=== PATIENT | female | born 2000 | race Two or more races ===

== ENCOUNTER 2024-07-19 03:32 | Emergency (ER) | payer MEDICARE, MEDICAID, SELFPAY ==
[2024-07-19 03:34] VITALS: PULSE 96; RESP 20; O2SAT 97; BMI 81.2
[2024-07-19 03:44] VITALS: BP 153/86; PULSE 110; RESP 19; TEMP 36.7; O2SAT 95
--- NOTE | 2024-07-19 03:52 | PD.EDRME ---
Rapid Medical Screening Exam RME Arrival date/time: 07/19/24 03:32 24-year-old female with past medical history of schizophrenia and father at bedside presents emergency department complaining of suicidal ideation without plan and auditory hallucinations telling her to hurt herself. Chief Complaint: Anxiety Vital signs: Vital Signs Temperature 98.0 F 07/19/24 03:44 Pulse Rate 110 H 07/19/24 03:44 Respiratory Rate 19 07/19/24 03:44 Blood Pressure 153/86 H 07/19/24 03:44 Pulse Oximetry (%) 95 07/19/24 03:44 Oxygen Delivery Method Room Air 07/19/24 03:44 Vital signs reviewed by provider: Yes
[2024-07-19 04:41] LABS: Collection Type, Urine Clean Catch
[2024-07-19 04:47] LABS: Bacteria,Urine Rare; Bilirubin,Urine Negative (Negative); Blood,Urine Negative (Negative); Clarity,Urine Clear (Clear/Hazy); Color,Urine Colorless (Lt Yel-Yel); Culture Indicated,Urine Not Indicated; Glucose, Urine Negative (Negative); Ketones,Urine Negative (Negative); Leukocyte Esterase,Urine Negative (Negative); Nitrite,Urine Negative (Negative); Protein,Urine Negative (Neg - Trace); RBC,Urine 1 /hpf (0-3); Specific Gravity,Urine 1.007 (1.001-1.035); Squamous Epithelial Cell,Urine 1 /hpf (0-5); Urobilinogen,Urine Negative mg/dL (0.0-1.0); WBC,Urine 2 /hpf (0-5)
[2024-07-19 05:09] VITALS: BP 133/104; PULSE 105; RESP 20; TEMP 37.2; O2SAT 95
[2024-07-19 05:11] LABS: Amphetamine/Methamp Scrn,U Negative (Negative); Barbiturate Screen,Urine Negative (Negative); Benzoylecgonine Screen, Ur Negative (Negative); Fentanyl Screen,Urine Negative (Negative); Opiate Screen,Urine Negative (Negative); THC Screen,Urine Negative (Negative)
[2024-07-19 05:12] LABS: Benzodiazepines Screen,Urine Positive (Negative)
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
--- NOTE | 2024-07-19 06:23 | PC.NURSE ---
Pt walked to the bathroom and back. Pt not c/o of any discomfort at this time. Pt made given update on plan of care. Call light within reach.
[2024-07-19 07:10] VITALS: BP 152/107; PULSE 84; RESP 22; O2SAT 100
--- NOTE | 2024-07-19 07:10 | PC.NURSE ---
PT STANDING IN ROOM. NOW STATING WANTED TO KILL SELF WITH KNIFE BECAUSE MY DAD DOESN'T APPRECIATE WHAT I DO. WILL INFORM CHARGE NURSE THAT PT NOW STATING SUICIDAL IDEATION. ALL FROM SOCIAL SERVICED INFORMED THAT PT HERE
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
[2024-07-19 08:12] VITALS: BP 171/91; PULSE 96; RESP 20; TEMP 37.2; O2SAT 95
--- NOTE | 2024-07-19 09:00 | PC.NURSE ---
pt frequently walking from room to desk to ask for bible or food. Ball Truing Machine Operator called and will bring bible to pt
--- NOTE | 2024-07-19 09:17 | CHAP ---
Patient had requested a small Bible so the nurse called me. I took several New Testaments to leave at the desk. After I gave the patient a white one she requested a blue one as well. I gave her a blue one. I asked the patient What's your name? I could not quite make out the answer and tried again, but it still sounded indistinct and garbled, so I asked her to spell it for me and she did slowly. I asked her if she would like me to pray with her and she said yes. I had a prayer with her.
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
--- NOTE | 2024-07-19 09:40 | PC.NURSE ---
pt leeping and will not waken for vital signs
--- NOTE | 2024-07-19 10:44 | PC.CC ---
Pt Mikaela Houston is a 24 yr old female to ED for reported anxiety. Pt reporting command type auditory hallucinations telling her to harm herself. Per pt she will not act on these commands. Pts [place] Screening is 18/25 with negative tox screening. Pt is frequently seen in the ED for similar reports of anxiety and auditory hallucinations. It is noted that pt reported to RN that she is thinking of harming herself with a knife. ASW met with pt at bedside. Pt noted to be unhygienic, pt being unable to complete her ADLs without assist due to body mass. ASW explained reason for encounter and role in pt care. Pt is noted to be responding in internal stimuli. Pt fails to keep direct eye contact. Pt speaks in clear even tone. Pt presents with blunted affect. Pt is alert and oriented to person, place and situation. Pt reports coming to the ED due to her anxiety. Pt reports she is experiencing command type auditory hallucinations, that are telling her to harm herself. Pt reports that she will not act on commands. Pt states that at this time she is not wanting to harm herself or others. ASW assessed pts statement of wanting to kill herself with a knife. Pt reports she has knifes in her kitchen at home, but states she does not use them. ASW assessed if pt wants to hurt herself at this time. Pt denies any SI to ASW at this time. Pt reports she is prescribed mental health medication and is seeing a therapist at [facility] on [address], next appointment on 07/26/24 @ 1400. Pt reports recently having [facility], pending follow up appointment. [id number]-Case staffed with WIRE RIGGER Korin Chauhan. Pt to be cleared with safety plan. ASW will follow up with [facility] and [facility] to confirm appointment dates.
--- NOTE | 2024-07-19 11:28 | PC.NURSE ---
dr. fatima in to talk with pt
== END 2024-07-19 11:43 | disposition home or self-care (01) ==
PROVIDERS: Emergency Provider Emergency Medicine; PCP Family Medicine
DX: F20.9 Schizophrenia, unspecified (principal); E66.01 Morbid (severe) obesity due to excess calories; Z68.45 Body mass index [BMI] 70 or greater, adult; Z53.29 Procedure and treatment not carried out because of patient's decision for other reasons
CPT/HCPCS: 80307; 81001; 81025; 96127; 99281; 99284

== ENCOUNTER 2024-07-20 08:49 | Emergency (ER) | payer MEDICARE, MEDICAID, SELFPAY ==
[2024-07-20 09:01] VITALS: BP 145/66; PULSE 88; RESP 19; TEMP 36.9; O2SAT 99
--- NOTE | 2024-07-20 12:07 | PC.NURSE ---
took off pants in lobby br walked out with no pants or underwear on. given blanket to cover herself while staff looks for something to cover her
--- NOTE | 2024-07-20 15:12 | PC.CC ---
ASWMckenzie was consulted for ride home for the patient. This ASW is arranging an UBER for patient.
[2024-07-20 15:18] VITALS: BP 147/80; PULSE 72; RESP 20; TEMP 37; O2SAT 95
--- NOTE | 2024-07-20 15:28 | PD.EDADULT ---
ED General RME/HPI General Chief complaint: Abdominal Pain Stated complaint: STOMACH HURTING Time Seen by Provider: 07/20/24 08:51 Arrival date/time: 07/20/24 08:49 24-year-old female presents emergency department today stating my stomach is hurting patient reports no fever nausea vomiting patient also suffers from psychiatric disorder Limitations: no limitations Related Data Home Medications ?Medication ?Instructions ?Recorded ?Confirmed haloperidol 2 mg tablet 2 mg PO BID 11/05/23 04/23/24 brexpiprazole 2 mg tablet (Rexulti) 3 mg PO HS 04/08/24 04/23/24 carvedilol 3.125 mg tablet (Coreg) 3.125 mg PO BID 04/08/24 04/23/24 vortioxetine 10 mg tablet 10 mg PO HS 04/08/24 04/23/24 (Trintellix) metformin 1,000 mg tablet 500 mg PO BID 04/23/24 04/23/24 Previous Rx's ?Medication ?Instructions ?Recorded lisinopril 20 mg tablet 40 mg (2 x 20 mg) PO QDAY 30 days 11/07/23 #60 tabs atorvastatin 20 mg tablet 40 mg (2 x 20 mg) PO HS #30 tabs 04/18/24 benzocaine 10 % mucosal gel See Rx Instructions .Route 04/18/24 (Zilactin-B) .COMPLEX PRN MOUTH/DENTAL PAIN #7 grams polyethylene glycol 3350 17 gram 17 g PO QDAY PRN constipation #30 04/18/24 oral powder packet (HealthyLax) prince flash glucose scanning reader #1 ea 04/26/24 (FreeStyle Rosales 2 [place]) flash glucose sensor (FreeStyle #1 ea 04/26/24 Rosales 2 Sensor kit) benztropine 0.5 mg tablet 0.5 mg PO QDAY 30 days #30 tabs 06/27/24 metformin 1,000 mg tablet 1,000 mg PO BID #60 tabs 06/27/24 cefuroxime axetil 500 mg tablet 500 mg PO BID #14 tabs 07/09/24 ondansetron 4 mg disintegrating 4 mg PO Q8H PRN nausea and 07/09/24 tablet vomiting #10 tabs polyethylene glycol 3350 17 4 g PO QDAY #119 grams 07/09/24 gram/dose oral powder (Miralax) Allergies Allergy/AdvReac Type Severity Reaction Status Date / Time No Known Allergies Allergy Verified 07/20/24 08:52 Review of Systems Review of Systems Systems Reviewed: All systems reviewed, normal except as documented Constitutional Constitutional: Reports system reviewed and no additional complaints, except as documented, Denies fever(s) and Denies headache(s) Eyes Eyes: Reports system reviewed and no additional complaints, except as documented and Denies blurry vision ENT Ears, Nose, Mouth, and Throat: Reports system reviewed and no additional complaints, except as documented, Denies headache(s), Denies nasal congestion and Denies nasal discharge Cardiovascular Cardiovascular: Reports system reviewed and no additional complaints, except as documented, Denies chest pain and Denies dyspnea Respiratory Respiratory: Reports system reviewed and no additional complaints, except as documented, Denies chest congestion, Denies cough and Denies dyspnea Gastrointestinal Gastrointestinal: Reports system reviewed and no additional complaints, except as documented and Denies abdominal pain Integumentary/Breasts Skin/Breast: Reports system reviewed and no additional complaints, except as documented and Denies rash Neurologic Neurologic: Reports system reviewed and no additional complaints, except as documented, Reports as per HPI, Denies behavioral changes and Denies headache(s) Psychiatric Psychiatric: Reports system reviewed and no additional complaints, except as documented, Denies behavioral changes, Denies hallucinations, Denies homicidal ideation, Denies hopelessness, Denies mood swings, Denies panic attacks, Denies suicidal ideation and Denies visual hallucinations Past Medical History Past Medical History NEUROLOGIC: Negative Neurological Disorders CARDIAC: Positive Hypercholesterolemia and Hypertension; Negative Cardiac Disorders or Congestive Heart Failure RESPIRATORY: Positive Chronic Obstructive Pulmonary Disease (COPD), Asthma, Sleep Apnea and Intubation GASTROINTESTINAL: Positive Obesity; Negative Gastrointestinal Disorders GENITOURINARY: Negative Genitourinary Disorders or Renal Disease MUSCULOSKELETAL: Negative Musculoskeletal Disorders ENDOCRINE: Positive Endocrine Disorders and Diabetes Mellitus Type 2; Negative Diabetes Mellitus Type 1 HEMATOLOGIC: Positive Anemia; Negative Blood Disorders or Sickle Cell Disease PSYCHO/SOCIAL: Positive Schizophrenia, Bipolar Disorder, Depression and Anxiety OTHER HISTORY: Negative Autoimmune Disease, Blood Transfusion Reaction, Anesthesia Reactions, MRSA or Cancer Family History FAMILY HISTORY: Positive Family Psychiatric Problems; Negative Family Cardiac Disorders Surgical History SURGICAL: Negative Endocrine Surgery, Ear Surgery, Abdominal Surgery, Joint Replacement, Neurologic Surgery or Mastectomy Social History SMOKING STATUS: Never smoker SUBSTANCE USE: does not use ED Exam General Limitations: Present no limitations General appearance: Present alert and in no apparent distress Head Head exam: Present atraumatic, normocephalic and normal inspection Eye Eye exam: Present normal appearance, PERRL and EOMI; Absent conjunctival injection ENT ENT exam: Present normal exam, normal oropharynx and mucous membranes moist Neck Neck exam: Present normal inspection, full ROM and trachea midline Chest Chest inspection: Present normal inspection and symmetric chest wall rise Respiratory Respiratory exam: Present normal lung sounds bilaterally; Absent respiratory distress Cardiovascular Cardiovascular exam: Present regular rate, normal rhythm and normal heart sounds Abdominal Exam Abdominal exam: Present soft and normal bowel sounds; Absent distention, tenderness, guarding, rebound or rigidity Extremities Exam Extremities exam: Present normal inspection and full ROM; Absent tenderness Back Exam Back exam: Present normal inspection and full ROM Neurological Exam Neurological exam: Present alert, oriented X3, CN II-XII intact, normal gait and reflexes normal; Absent motor sensory deficit Psychiatric Psychiatric exam: Present normal affect and normal mood Skin Skin exam: Present warm, dry, intact and normal color; Absent rash Course Quality Measures none Vital Signs Vital signs: Vital Signs Temperature 98.5 F 07/20/24 09:01 Pulse Rate 88 07/20/24 09:01 Respiratory Rate 19 07/20/24 09:01 Blood Pressure 145/66 H 07/20/24 09:01 Pulse Oximetry (%) 99 07/20/24 09:01 Oxygen Delivery Method Room Air 07/20/24 09:01 O2 saturation 99% room air within normal limits MDM Patient data External records reviewed:: [facility] previous records Clinical information provided by:: patient Social determinants that could affect healthcare access:: mental health Patient has the following chronic illnesses:: Mental health How is presenting disease/condition affected by chronic disease/condition?: caused by Evaluation data The following diagnostics were reviewed and interpreted by me:: other (specify) (N/A) Lab and/or radiology exams considered but not ordered:: Consider not ordered Interpretation Summary: N/A Medications Medications considered but not ordered:: No meds Medication administrations:: No meds Consultations Consultation(s) initiated? (list below): No Diagnosis Differential Diagnosis ED Complaint MDM: Abdominal pain, appendicitis, gastroenteritis, psychiatric disorder Most likely diagnosis given after review of the tests above:: Psychiatric disorder Admission Indicated Admission indicated?: not indicated Explain why admission is indicated or not indicated:: no criteria Admission Request Was there a request for admission?: No Disposition Plan Disposition Plan: Discharge Discharge Attestation Discharge Attestation: The patient and all family members were given an opportunity to ask questions and understood the discharge instructions. Discharge instructions specifically effects, indications for sooner follow up or return to the emergency department, and the expected course of current diagnosis. Patient condition: Stable Medical Decision Making MDM Narrative MDM Narrative: 24-year-old female presents emergency department today stating my stomach is hurting patient reports no fever nausea vomiting patient also suffers from psychiatric disorder Patient well-known to me patient does not appear ill or toxic in fact I just saw the patient in the cafeteria here at the hospital eating patient was smiling and happy at that time literally this happened in the last 10 minutes Explained to the patient at this time I do not believe there is any acute emergency Explained to the patient if her symptoms persist or worsen she can return for further evaluation Differential Diagnosis Differential Diagnosis: Abdominal pain, appendicitis, gastroenteritis, psychiatric disorder Medical Records Medical records reviewed: Yes I reviewed the patient's medical records. Discharge Plan Plan Patient Disposition: HOME (Self Care) Disposition Comment: Stable Prescriptions/Referrals Prescriptions/Med Rec: No Action metformin 1,000 mg tablet 500 mg PO BID Patient Comments: TOME LUIS FERNANDO TABLETA DOS VECES AL D A CON ALIMENTO (DME) FreeStyle Rosales 2 [place] Misc See Rx Instructions .Route Qty: 1 0RF Rx Instructions: As directed (DME) FreeStyle [place] 2 Sensor Kit See Rx Instructions .Route Qty: 1 0RF Rx Instructions: As directed metformin 1,000 mg tablet 1,000 mg PO BID Qty: 60 0RF benztropine 0.5 mg tablet 0.5 mg PO QDAY 30 Days Qty: 30 0RF cefuroxime axetil 500 mg tablet 500 mg PO BID Qty: 14 0RF polyethylene glycol 3350 [Miralax] 17 gram/dose powder 4 g PO QDAY Qty: 119 0RF haloperidol 2 mg tablet 2 mg PO BID Patient Comments: TOME LUIS FERNANDO TABLETA POR V A ORAL DOS VECES AL D A lisinopril 20 mg Tablet 40 mg PO QDAY 30 Days Qty: 60 1RF carvedilol [Coreg] 3.125 mg Tablet 3.125 mg PO BID Rx Instructions: must administer with a meal/food Trintellix 10 mg Tablet 10 mg PO HS Rexulti 2 mg tablet 3 mg PO HS Zilactin-B 10 % Gel See Rx Instructions .ROUTE .COMPLEX PRN (Reason: MOUTH/DENTAL PAIN) Qty: 7 0RF Rx Instructions: apply twice a day as needed atorvastatin 20 mg Tablet 40 mg PO HS Qty: 30 0RF polyethylene glycol 3350 [HealthyLax] 17 gram Powder In Packet 17 g PO QDAY PRN (Reason: constipation) Qty: 30 0RF ondansetron 4 mg tablet,disintegrating 4 mg PO Q8H PRN (Reason: nausea and vomiting) Qty: 10 0RF Referrals: Dimitry Oglesby MD [Primary Care Provider] - In 1 week Problem List Clinical Impression: Psychiatric disorder Patient/Caregiver Discharge Instructions Education Materials: Journaling for Mental Health Additional Instructions: Please follow up with your primary care doctor in the next 24-48hrs for any worsening symptoms return here immediately Print Language: Libyan Stand Alone Forms: Zandra Award Info., Patient Portal Info Letter PA/BLACK TOP ROLLER Supervising Physician PA/BLACK TOP ROLLER Supervising Physician: Dr. Arciniega
--- NOTE | 2024-07-20 15:42 | PC.NURSE ---
PT PICKED UP BY [facility] [place] [place]
== END 2024-07-20 15:32 | disposition home or self-care (01) ==
PROVIDERS: Emergency Provider Emergency Medicine; PCP Family Medicine
DX: F99 Mental disorder, not otherwise specified (principal)
CPT/HCPCS: 99281

== ENCOUNTER 2024-07-21 07:55 | Emergency (ER) | payer MEDICARE, MEDICAID, SELFPAY ==
[2024-07-21 07:56] VITALS: PULSE 92; RESP 18; O2SAT 97
[2024-07-21 08:07] VITALS: BP 138/73; PULSE 86; RESP 20; TEMP 36.8; O2SAT 95; BMI 76.4
--- NOTE | 2024-07-21 08:26 | PD.EDRME ---
Rapid Medical Screening Exam RME Arrival date/time: 07/21/24 07:55 This is a 24-year-old female history of bipolar schizophrenia acute psychosis presents to the emergency department with anxiety, hearing voices. Positive SI. Chief Complaint: Anxiety Time Seen by Provider: 07/21/24 08:04 Vital signs: Vital Signs Temperature 98.2 F 07/21/24 08:07 Pulse Rate 86 07/21/24 08:07 Respiratory Rate 20 07/21/24 08:07 Blood Pressure 138/73 H 07/21/24 08:07 Pulse Oximetry (%) 95 07/21/24 08:07 Oxygen Delivery Method Room Air 07/21/24 08:07
--- NOTE | 2024-07-21 08:31 | PD.EDANX ---
ED Anxiety RME/HPI General Chief Complaint: Anxiety Stated Complaint: ANXIOUS Time Seen by Provider: 07/21/24 08:04 Arrival date/time: 07/21/24 07:55 RME / HPI RME / HPI narrative: 07/21/24 07:55 This is a 24-year-old female history of bipolar schizophrenia acute psychosis presents to the emergency department with anxiety, hearing voices. Positive SI. DR. ARCINIEGA MAIN ED EVALUATION 24 year old female with history of hypertension, diabetes, schizophrenia, bipolar disorder, and well known to this facility presents to the ED for complaint of feeling anxious and I'm hearing voices . Reports the voices tell her to kill herself and says but I'm not going to do it because I'm too intelligent . Additionally reports thoughts of overdosing with intentions to kill herself. Denies any attempts. No other associated symptoms or complaints reported. Denies fevers, chills, chest pain, cough, shortness of breath, abdominal pain, n/v/d, or urinary symptoms. Patient reports compliance with her medications and took Metformin, Atorvastatin, Lisinopril, and Carvedilol this morning. Related Data Home Medications ?Medication ?Instructions ?Recorded ?Confirmed haloperidol 2 mg tablet 2 mg PO BID 11/05/23 04/23/24 brexpiprazole 2 mg tablet (Rexulti) 3 mg PO HS 04/08/24 04/23/24 carvedilol 3.125 mg tablet (Coreg) 3.125 mg PO BID 04/08/24 04/23/24 vortioxetine 10 mg tablet 10 mg PO HS 04/08/24 04/23/24 (Trintellix) metformin 1,000 mg tablet 500 mg PO BID 04/23/24 04/23/24 Previous Rx's ?Medication ?Instructions ?Recorded lisinopril 20 mg tablet 40 mg (2 x 20 mg) PO QDAY 30 days 11/07/23 #60 tabs atorvastatin 20 mg tablet 40 mg (2 x 20 mg) PO HS #30 tabs 04/18/24 benzocaine 10 % mucosal gel See Rx Instructions .Route 04/18/24 (Zilactin-B) .COMPLEX PRN MOUTH/DENTAL PAIN #7 grams polyethylene glycol 3350 17 gram 17 g PO QDAY PRN constipation #30 04/18/24 oral powder packet (HealthyLax) ea flash glucose scanning reader #1 ea 04/26/24 (FreeStyle Rosales 2 [place]) flash glucose sensor (FreeStyle #1 ea 04/26/24 Rosales 2 Sensor kit) benztropine 0.5 mg tablet 0.5 mg PO QDAY 30 days #30 tabs 06/27/24 metformin 1,000 mg tablet 1,000 mg PO BID #60 tabs 06/27/24 cefuroxime axetil 500 mg tablet 500 mg PO BID #14 tabs 07/09/24 ondansetron 4 mg disintegrating 4 mg PO Q8H PRN nausea and 07/09/24 tablet vomiting #10 tabs polyethylene glycol 3350 17 4 g PO QDAY #119 grams 07/09/24 gram/dose oral powder (Miralax) Allergies Allergy/AdvReac Type Severity Reaction Status Date / Time No Known Allergies Allergy Verified 07/20/24 08:52 Review of Systems Review of Systems Narrative Review of Systems: GEN: No fever, no chills, no weight loss EYES: No discharge, no visual changes, no pain HEENT: No ear pain, no congestion, no sore throat PULM: No shortness of breath, no cough, no congestion CV: No chest pain, no dyspnea on exertion, no palpitations GI: No nausea, no vomiting, no diarrhea, no pain, no constipation : No frequency, no urgency and no dysuria MUSC/SKEL No joint pain, no back pain SKIN: No rash PSYCH: +auditory hallucinations, +SI HEME/LYMPH: No easy bleeding or bruising tendencies NEURO: No weakness, no headache Past Medical History Past Medical History CARDIAC: Positive Hypercholesterolemia and Hypertension RESPIRATORY: Positive Chronic Obstructive Pulmonary Disease (COPD), Asthma, Sleep Apnea and Intubation GASTROINTESTINAL: Positive Obesity ENDOCRINE: Positive Endocrine Disorders and Diabetes Mellitus Type 2 HEMATOLOGIC: Positive Anemia PSYCHO/SOCIAL: Positive Schizophrenia, Bipolar Disorder, Depression and Anxiety Family History FAMILY HISTORY: Positive Family Psychiatric Problems; Negative Family Cardiac Disorders Surgical History SURGICAL: Negative Endocrine Surgery, Ear Surgery, Abdominal Surgery, Joint Replacement, Neurologic Surgery or Mastectomy Social History SMOKING STATUS: Never smoker SUBSTANCE USE: does not use ED Exam Narrative Physical exam: GENERAL APPEARANCE: Well hydrated, well nourished, in no acute distress. Morbidly obese. Pleasant. VITALS: All vitals were reviewed and the pulse ox is 95% on room air which is normal according to my interpretation. HEENT: Normocephalic, atramatic, EOMI, EACs are patent. There is no bulge or retraction. Throat without erythema or exudate. Moist oromucosa. No jaundice NECK: Supple, no JVD or bruits. CARDIOVASCULAR: Heart regular without S3-S4 or murmur. No rubs or gallops. LUNGS/CHEST: Clear to auscultation bilaterally. No rales, rhonchi, or wheezing. Normal inspection. ABDOMEN: Soft, morbidly obese, nontender, with normal bowel sounds. No pulsatile masses. No rebound, rigidity, or guarding. No incarcerated hernia. EXTREMITIES: Normal inspection and palpation. No edema, clubbing, or cyanosis. Intact CSM SKIN: Warm and dry without rashes. Normal inspection. MUSCULOSKELETAL: Normal inspection. No gross deformity, full ROM all extremities NEURO: Alert and oriented x3. Cranial nerves II through XII grossly intact. There are no other motor or sensory deficits noted. PSYCHIATRIC: Normal mood and affect. Pleasant. No psychosis Course Quality Measures none Orders Category Date Time Status Psychosocial assessment NOW Care 07/21/24 08:26 Active Consult to Psychologist Routine Cons 07/21/24 08:26 Ordered Drug Screen,Urine Stat Lab 07/21/24 08:26 Ordered HCG Qualitative,Urine Stat Lab 07/21/24 08:26 Ordered MARIO [Alcohol, Blood Medical] Stat Lab 07/21/24 08:26 Ordered Vital Signs Vital signs: Vital Signs Temperature 98.2 F 07/21/24 08:07 Pulse Rate 86 07/21/24 08:07 Respiratory Rate 20 07/21/24 08:07 Blood Pressure 138/73 H 07/21/24 08:07 Pulse Oximetry (%) 95 07/21/24 08:07 Oxygen Delivery Method Room Air 07/21/24 08:07 Anxiety MDM Narrative MDM Narrative: IBreanne am scribing for and in the presence of Dr. Arciniega. Drug screen is negative. Alcohol level is negative. test is negative. 10 0 8 AM, the patient is medically cleared to be seen by mental health. 11:10 AM, the patient is stable. Mental health/rn social work is here, has seen and reevaluated the patient. She said the patient can be discharged home. The patient is currently not suicidal homicidal. She is not hallucinating or delusional acutely at this moment. Patient is pleasant and cooperative and reasonable Patient data External records reviewed:: [facility] previous records (I reviewed ED visit yesterday 07/20/2024) Clinical information provided by:: patient Social determinants that could affect healthcare access:: mental health Patient has the following chronic illnesses:: hypertension, diabetes, schizophrenia, bipolar disorder, and well known to this facility How is presenting disease/condition affected by chronic disease/condition?: exacerbated by Evaluation data The following diagnostics were reviewed and interpreted by me:: lab results Lab and/or radiology exams considered but not ordered:: None Interpretation Summary: As noted above Medications / Prescriptions Medications or Prescriptions considered but not ordered:: None Medication administrations:: None Consultations Consultation(s) initiated? (list below): No Diagnosis Most likely diagnosis given after review of the tests above:: Schizophrenia Admission Indicated Admission indicated?: not indicated Admission Request Was there a request for admission?: No Disposition Plan Disposition Plan: Discharge Discharge Attestation Discharge Attestation: The patient and all family members were given an opportunity to ask questions and understood the discharge instructions. Discharge instructions specifically effects, indications for sooner follow up or return to the emergency department, and the expected course of current diagnosis. Patient condition: Stable Discharge Plan Plan Patient Disposition: HOME (Self Care) Disposition Comment: Stable for DC home Prescriptions/Referrals Prescriptions/Med Rec: No Action metformin 1,000 mg tablet 500 mg PO BID Patient Comments: TOME LUIS FERNANDO TABLETA DOS VECES AL D A CON ALIMENTO (DME) FreeStyle Rosales 2 [place] [facility] [place] See Rx Instructions .Route Qty: 1 0RF Rx Instructions: As directed (DME) FreeStyle Rosales 2 Sensor Kit See Rx Instructions .Route Qty: 1 0RF Rx Instructions: As directed metformin 1,000 mg tablet 1,000 mg PO BID Qty: 60 0RF benztropine 0.5 mg tablet 0.5 mg PO QDAY 30 Days Qty: 30 0RF cefuroxime axetil 500 mg tablet 500 mg PO BID Qty: 14 0RF polyethylene glycol 3350 [Miralax] 17 gram/dose powder 4 g PO QDAY Qty: 119 0RF haloperidol 2 mg tablet 2 mg PO BID Patient Comments: TOME LUIS FERNANDO TABLETA POR V A ORAL DOS VECES AL D A lisinopril 20 mg Tablet 40 mg PO QDAY 30 Days Qty: 60 1RF carvedilol [Coreg] 3.125 mg Tablet 3.125 mg PO BID Rx Instructions: must administer with a meal/food Trintellix 10 mg Tablet 10 mg PO HS Rexulti 2 mg tablet 3 mg PO HS Zilactin-B 10 % Gel See Rx Instructions .ROUTE .COMPLEX PRN (Reason: MOUTH/DENTAL PAIN) Qty: 7 0RF Rx Instructions: apply twice a day as needed atorvastatin 20 mg Tablet 40 mg PO HS Qty: 30 0RF polyethylene glycol 3350 [HealthyLax] 17 gram Powder In Packet 17 g PO QDAY PRN (Reason: constipation) Qty: 30 0RF ondansetron 4 mg tablet,disintegrating 4 mg PO Q8H PRN (Reason: nausea and vomiting) Qty: 10 0RF Referrals: Marcio Oneill PA-C [Primary Care Provider] - In 1 week Problem List Clinical Impression: Schizophrenia Patient/Caregiver Discharge Instructions Education Materials: ED Schizophrenia, General Additional Instructions: Follow the instruction given you by the mental health conditioning room worker and rn social work. Follow-up with your medical doctor recommended. Return to nearest emergency department if any problem. Print Language: Angolan Stand Alone Forms: Zandra Award Info., Patient Portal Info Letter
[2024-07-21 09:15] LABS: Alcohol, Blood Medical < 3.0 mg/dL (0-10.0)
--- NOTE | 2024-07-21 09:20 | PC.NURSE ---
PATIENT HAD CAME IN VIA EMS FOR FEELING VIOLENT PER PT. THIS IS PATIENTS 11TH VISIT HERE THIS MONTH FOR DIFFERENT COMPLAINTS. PT HAS CHRONIC HALLUCINATING, ALSO STATES SHE IS DEPRESSED AND SI. I ASKED DOES SHE HAVE A PLAN TO HURT HERSELF SHE STATED NO. I AGAIN ASKED PT WHY SHE CALLED EMS SHE STATES IM DISAPPEARING AND IM . I ASKED IF SHE HAS HAD SEXUAL INTERCOURSE AND SHE SAID YES WHEN SHE WAS 15. SHE ALSO COMPLAIN OF THROAT PAIN. [place] SCALE COMPLETED. LOW RISK
[2024-07-21 10:04] LABS: Amphetamine/Methamp Scrn,U Negative (Negative); Barbiturate Screen,Urine Negative (Negative); Benzodiazepines Screen,Urine Negative (Negative); Benzoylecgonine Screen, Ur Negative (Negative); Fentanyl Screen,Urine Negative (Negative); Opiate Screen,Urine Negative (Negative); THC Screen,Urine Negative (Negative)
[2024-07-21 10:07] LABS: HCG Qualitative,Urine Negative
--- NOTE | 2024-07-21 10:59 | PC.CC ---
Patient is a 24 year-old female who presents to the hospital for anxiety. ASWMckenzie introduced self, role, and reason for visit to patient and discussed limits of confidentiality. Patient appears alert and oriented to self, location, and situation. Patient was pleasant and engaged in assessment. Patient reports she has been hearing voices in her head telling her that bad things will happen. However, patient shared this is her base line and occurs everyday. Patient denied suicidal and homicidal ideations. Patient denied auditory hallucinations. Patient stated, I have Bipolar and Schizophernia. Patient has been feeling sad because she misses her mother that . Patient is connected to [facility] and has an appointment on August 10, 2024. Patient stated she would like to go home but would like some coloring pages and colors as she has been bored at home. Upon clinical consultation with Korin DAMICO the patient does not meet criteria for 5150-hold. Patient to follow up with [facility]. ASW to remain available.
--- NOTE | 2024-07-21 15:04 | PC.CC ---
The father to the patient presented himself to the ED to pickling machine operator patient. ASW arranged UBER for the patient.
== END 2024-07-21 15:00 | disposition home or self-care (01) ==
PROVIDERS: Nurse Practitioner Primary Care; Emergency Provider Emergency Medicine; PCP Physician Assistant Medical
DX: F20.9 Schizophrenia, unspecified (principal)
CPT/HCPCS: 36415; 80307; 80320; 81025; 90839; 96127; 99284; G0480

== ENCOUNTER 2024-07-22 07:24 | Emergency (ER) | payer MEDICARE, MEDICAID, SELFPAY ==
[2024-07-22 07:38] VITALS: BP 141/72; PULSE 92; RESP 22; TEMP 36.6; O2SAT 92
[2024-07-22] MEDS: ACETAMINOPHEN 500 MG TABLET 1000 MG PO (08:18)
--- NOTE | 2024-07-22 08:21 | EDNOTE_ITS ---
ED Headache RME/HPI General Chief Complaint: Headache Stated Complaint: HEADACHE X YESTERDAY AFTER EATING A LOT Time Seen by Provider: 07/22/24 07:40 Source: patient Arrival date/time: 07/22/24 07:24 This a 24-year-old female significant past medical history of hyperlipidemia, psych disorders, hypertension presents to the emergency department with complaints of a headache after eating a lot of food yesterday. Patient reports she called 911 for headache however did not take medication prior to ED arrival. Denies diplopia, blurry vision, no suicidal homicidal ideation today. Related Data Home Medications ?Medication ?Instructions ?Recorded ?Confirmed haloperidol 2 mg tablet 2 mg PO BID 11/05/23 04/23/24 brexpiprazole 2 mg tablet (Rexulti) 3 mg PO HS 04/08/24 04/23/24 carvedilol 3.125 mg tablet (Coreg) 3.125 mg PO BID 04/08/24 04/23/24 vortioxetine 10 mg tablet 10 mg PO HS 04/08/24 04/23/24 (Trintellix) metformin 1,000 mg tablet 500 mg PO BID 04/23/24 04/23/24 Previous Rx's ?Medication ?Instructions ?Recorded lisinopril 20 mg tablet 40 mg (2 x 20 mg) PO QDAY 30 days 11/07/23 #60 tabs atorvastatin 20 mg tablet 40 mg (2 x 20 mg) PO HS #30 tabs 04/18/24 benzocaine 10 % mucosal gel See Rx Instructions .Route 04/18/24 (Zilactin-B) .COMPLEX PRN MOUTH/DENTAL PAIN #7 grams polyethylene glycol 3350 17 gram 17 g PO QDAY PRN constipation #30 04/18/24 oral powder packet (HealthyLax) prince flash glucose scanning reader #1 ea 04/26/24 (FreeStyle Ros[place] 2 [place]) flash glucose sensor (FreeStyle #1 ea 04/26/24 Rosales 2 Sensor kit) benztropine 0.5 mg tablet 0.5 mg PO QDAY 30 days #30 tabs 06/27/24 metformin 1,000 mg tablet 1,000 mg PO BID #60 tabs 06/27/24 cefuroxime axetil 500 mg tablet 500 mg PO BID #14 tabs 07/09/24 ondansetron 4 mg disintegrating 4 mg PO Q8H PRN nausea and 07/09/24 tablet vomiting #10 tabs polyethylene glycol 3350 17 4 g PO QDAY #119 grams 07/09/24 gram/dose oral powder (Miralax) Allergies Allergy/AdvReac Type Severity Reaction Status Date / Time No Known Allergies Allergy Verified 07/20/24 08:52 Review of Systems Review of Systems Systems Reviewed: All systems reviewed, normal except as documented Narrative Review of Systems: Gen: No fever, no chills, no weight loss EYES: No discharge, no visual changes, no pain HEENT: No ear pain, no congestion, no sore throat PULM: No shortness of breath, no cough, no congestion CV: No chest pain, no dyspnea on exertion, no palpitations GI: No nausea, no vomiting, no diarrhea, no pain, no constipation : No frequency, no urgency, no dysuria Musc/skel: No joint pain, no back pain Skin: No rash Psyc: No hallucinations, no depression Heme/Lymph: No easy bleeding or bruising tendencies Neuro: No weakness, no headache ED Exam Narrative Physical exam: GENERAL APPEARANCE: Well hydrated, well nourished, in no acute distress. Morbidly obese. Pleasant. VITALS: All vitals were reviewed and the pulse ox is 95% on room air which is normal according to my interpretation. HEENT: Normocephalic, atramatic, EOMI, EACs are patent. There is no bulge or retraction. Throat without erythema or exudate. Moist oromucosa. No jaundice NECK: Supple, no JVD or bruits. CARDIOVASCULAR: Heart regular without S3-S4 or murmur. No rubs or gallops. LUNGS/CHEST: Clear to auscultation bilaterally. No rales, rhonchi, or wheezing. Normal inspection. ABDOMEN: Soft, morbidly obese, nontender, with normal bowel sounds. No pulsatile masses. No rebound, rigidity, or guarding. No incarcerated hernia. EXTREMITIES: Normal inspection and palpation. No edema, clubbing, or cyanosis. Intact CSM SKIN: Warm and dry without rashes. Normal inspection. MUSCULOSKELETAL: Normal inspection. No gross deformity, full ROM all extremities NEURO: Alert and oriented x3. Cranial nerves II through XII grossly intact. There are no other motor or sensory deficits noted. PSYCHIATRIC: Normal mood and affect. Pleasant. No psychosis Course Quality Measures none Orders Category Date Time Status Acetaminophen Tab [Tylenol ES Tab] Med 07/22/24 08:03 Discontinued 1,000 mg PO X1 ONE Vital Signs Vital signs: Vital Signs Temperature 97.8 F 07/22/24 07:38 Pulse Rate 92 07/22/24 07:38 Respiratory Rate 22 H 07/22/24 07:38 Blood Pressure 141/72 H 07/22/24 07:38 Pulse Oximetry (%) 92 L 07/22/24 07:38 Oxygen Delivery Method Room Air 07/22/24 07:38 Headache Patient data External records reviewed:: [facility] previous records Clinical information provided by:: patient Social determinants that could affect healthcare access:: none Patient has the following chronic illnesses:: Yes chronic disorder see chart How is presenting disease/condition affected by chronic disease/condition?: uneffected by Evaluation data The following diagnostics were reviewed and interpreted by me:: other (specify) Lab and/or radiology exams considered but not ordered:: None considered today Interpretation Summary: Not applicable Medications / Prescriptions Medications or Prescriptions considered but not ordered:: No Medication administrations:: Medication Administration History Discontinued Medications Acetaminophen (Acetaminophen 500 Mg Tablet) 1,000 mg PO X1 ONE Stop: 07/22/24 08:04 Last Admin: 07/22/24 08:18 Dose: 1,000 mg Documented By: DB All medications administered and effective Consultations Consultation(s) initiated? (list below): No Diagnosis Differential diagnosis headache: migraine, tension headache and headache Most likely diagnosis given after review of the tests above:: Tension headache Admission Indicated Admission indicated?: not indicated Admission Request Was there a request for admission?: No Disposition Plan Disposition Plan: Discharge Discharge Attestation Discharge Attestation: The patient and all family members were given an opportunity to ask questions and understood the discharge instructions. Discharge instructions specifically effects, indications for sooner follow up or return to the emergency department, and the expected course of current diagnosis. Patient condition: Stable Discharge Plan Plan Patient Disposition: HOME (Self Care) Patient condition on transfer: Stable Prescriptions/Referrals Prescriptions/Med Rec: No Action metformin 1,000 mg tablet 500 mg PO BID Patient Comments: TOME LUIS FERNANDO TABLETA DOS VECES AL D A CON ALIMENTO (DME) FreeStyle Rosales 2 [place] Misc See Rx Instructions .Route Qty: 1 0RF Rx Instructions: As directed (DME) FreeStyle Rosales 2 Sensor Kit See Rx Instructions .Route Qty: 1 0RF Rx Instructions: As directed metformin 1,000 mg tablet 1,000 mg PO BID Qty: 60 0RF benztropine 0.5 mg tablet 0.5 mg PO QDAY 30 Days Qty: 30 0RF cefuroxime axetil 500 mg tablet 500 mg PO BID Qty: 14 0RF polyethylene glycol 3350 [Miralax] 17 gram/dose powder 4 g PO QDAY Qty: 119 0RF haloperidol 2 mg tablet 2 mg PO BID Patient Comments: TOME LUIS FERNANDO TABLETA POR V A ORAL DOS VECES AL D A lisinopril 20 mg Tablet 40 mg PO QDAY 30 Days Qty: 60 1RF carvedilol [Coreg] 3.125 mg Tablet 3.125 mg PO BID Rx Instructions: must administer with a meal/food Trintellix 10 mg Tablet 10 mg PO HS Rexulti 2 mg tablet 3 mg PO HS Zilactin-B 10 % Gel See Rx Instructions .ROUTE .COMPLEX PRN (Reason: MOUTH/DENTAL PAIN) Qty: 7 0RF Rx Instructions: apply twice a day as needed atorvastatin 20 mg Tablet 40 mg PO HS Qty: 30 0RF polyethylene glycol 3350 [HealthyLax] 17 gram Powder In Packet 17 g PO QDAY PRN (Reason: constipation) Qty: 30 0RF ondansetron 4 mg tablet,disintegrating 4 mg PO Q8H PRN (Reason: nausea and vomiting) Qty: 10 0RF Referrals: Dimitry Oglesby MD [Primary Care Provider] - In 1 week Problem List Clinical Impression: Headache Patient/Caregiver Discharge Instructions Discharge Activity: activity as tolerated Education Materials: Self-Care for Headaches Additional Instructions: - Follow-up with your primary doctor Return to the emergency department is any worsening symptoms, Print Language: Romanian Stand Alone Forms: Zandra Award Info., Patient Portal Info Letter PA/INKING MACHINE TENDER Supervising Physician PA/INKING MACHINE TENDER Supervising Physician: Dr Arciniega
== END 2024-07-22 12:29 | disposition home or self-care (01) ==
PROVIDERS: Emergency Provider Emergency Medicine; PCP Family Medicine
DX: R51.9 Headache, unspecified (principal); E78.5 Hyperlipidemia, unspecified; I10 Essential (primary) hypertension; E66.01 Morbid (severe) obesity due to excess calories
CPT/HCPCS: 99283; A9270

== ENCOUNTER 2024-07-27 00:05 | Inpatient (IN) | payer MEDICARE, MEDICAID, SELFPAY ==
[2024-07-27] VITALS (18 sets, daily range): BP systolic 105–165; BP diastolic 66–94; PULSE 82–104; RESP 14–88; TEMP 36.7–37.3; O2SAT 78–100; BMI 87.9
--- NOTE | 2024-07-27 00:13 | PD.EDADULT ---
ED General RME/HPI General Chief complaint: Shortness of Breath/Dyspnea Stated complaint: BODY PAIN Time Seen by Provider: 07/27/24 00:12 Arrival date/time: 07/27/24 00:05 RME / HPI RME / HPI narrative: Dr. [facility] Main ED Evaluation: 24yo female with pmhx DM, HTN, schizophrenia BIBA from home presents to the ED for multiple complaints. Patient was seen here earlier tonight, was diagnosed with Influenza, and was discharged home with Tamiflu. She called 911 due to feeling like she was disappearing. Patient reports having chest pain, abdominal pain, lower back pain, a dry cough, fever, 3 emetic episodes, 3 episodes of diarrhea, sweating, numbness to her tongue, dysuria, and shortness of breath. Denies any falls, injuries or loss of consciousness. No known allergies. Related Data Home Medications ?Medication ?Instructions ?Recorded ?Confirmed haloperidol 2 mg tablet 2 mg PO BID 11/05/23 04/23/24 brexpiprazole 2 mg tablet (Rexulti) 3 mg PO HS 04/08/24 04/23/24 carvedilol 3.125 mg tablet (Coreg) 3.125 mg PO BID 04/08/24 04/23/24 vortioxetine 10 mg tablet 10 mg PO HS 04/08/24 04/23/24 (Trintellix) metformin 1,000 mg tablet 500 mg PO BID 04/23/24 04/23/24 Previous Rx's ?Medication ?Instructions ?Recorded lisinopril 20 mg tablet 40 mg (2 x 20 mg) PO QDAY 30 days 11/07/23 #60 tabs atorvastatin 20 mg tablet 40 mg (2 x 20 mg) PO HS #30 tabs 04/18/24 benzocaine 10 % mucosal gel See Rx Instructions .Route 04/18/24 (Zilactin-B) .COMPLEX PRN MOUTH/DENTAL PAIN #7 grams polyethylene glycol 3350 17 gram 17 g PO QDAY PRN constipation #30 04/18/24 oral powder packet (HealthyLax) ea flash glucose scanning reader #1 ea 04/26/24 (FreeStyle Rosales 2 [place]) flash glucose sensor (FreeStyle #1 ea 04/26/24 Rosales 2 Sensor kit) metformin 1,000 mg tablet 1,000 mg PO BID #60 tabs 06/27/24 cefuroxime axetil 500 mg tablet 500 mg PO BID #14 tabs 07/09/24 ondansetron 4 mg disintegrating 4 mg PO Q8H PRN nausea and 07/09/24 tablet vomiting #10 tabs polyethylene glycol 3350 17 4 g PO QDAY #119 grams 07/09/24 gram/dose oral powder (Miralax) acetaminophen 500 mg capsule 1,000 mg (2 x 500 mg) PO Q6H PRN 07/26/24 fever or pain #30 caps oseltamivir 75 mg capsule (Tamiflu) 75 mg PO BID 5 days #10 caps 07/26/24 Allergies Allergy/AdvReac Type Severity Reaction Status Date / Time No Known Allergies Allergy Verified 07/20/24 08:52 Review of Systems Review of Systems Systems Reviewed: All systems reviewed, normal except as documented Narrative Review of Systems: Gen: No fever, no chills, no weight loss, + generalized body pain, + sweating EYES: No discharge, no visual changes, no pain HEENT: No ear pain, no congestion, no sore throat, + numbness to tongue PULM: + shortness of breath, + cough, no congestion CV: + chest pain, no dyspnea on exertion, no palpitations GI: + nausea, + vomiting, + diarrhea, + pain, no constipation : No frequency, no urgency, + dysuria Musc/skel: No joint pain, no back pain Skin: No rash. Warm and dry. Psyc: No hallucinations, no depression, + disappearing Heme/Lymph: No easy bleeding or bruising tendencies Neuro: No weakness, no headache ED Exam Narrative Physical exam: GEN. APPEARANCE: Patient is alert awake oriented x3 under no distress, laying down comfortably at 30-45?; does not look ill/ toxic. Patient has good eye contact. Patient is cooperative. Patient is morbidly obese. VITALS: All vitals were reviewed and the pulse ox is 94% on 5L/nasal cannula, which could be hypoxic according to my interpretation. HEENT: Normocephalic, atraumatic and nontender. Pupils are equal and reactive to light and accommodation. Oral mucosa are moist. NECK: Supple, nontender, no meningismus, no JVD. CHEST: Nontender on palpation, no deformity and no crepitus. CARDIOVASCULAR: Heart regular rhythm no murmur or gallop rub or extra beats; not tachycardic. LUNGS: Clear to auscultation bilaterally with symmetrical chest rise. No laboring tachypnea or wheezing. No intercostal subcostal retraction. No rales and no rhonchi. ABDOMEN: Soft, flat, nontender at all, no guarding or rebound tenderness. There are no abnormal masses palpated. No pulsatile masses or bruits. Active and normal bowel sounds. GENITALIA: Not examined. RECTAL EXAM: Not done. EXTREMITIES: Nontender. No edema. No cyanosis. Patient is able to move all 4 extremities well. SKIN: Warm and dry, no rashes noted. MUSCULOSKELETAL: No lumbar or midline bony tenderness. There is no CVA tenderness. No paraspinal muscle spasm or tenderness. NEURO: Cranial nerves II through XII grossly intact. There is no focalization. GCS is 15. PSYCHIATRIC: Patient is in normal mood and affect, cooperative. Normal speech and behavior. LYMPHATICS: No major lymphadenopathy noted. Course Course Course Narrative: CXR is ordered for determining the etiology of cough. Quality Measures none Orders Category Date Time Status COVID-19 Screening Questionnaire NOW Care 07/27/24 03:26 Active Decision to Admit X1 Care 07/27/24 03:25 Active EKG (ED ONLY) *Do not use* NOW Care 07/27/24 01:30 Completed Insert IV NOW Care 07/27/24 01:30 Active EKG (ED Only) Stat Exams 07/27/24 01:30 Ordered XR chest 1V portable Stat Exams 07/27/24 00:37 Taken B-Type Natriuretic Peptide Stat Lab 07/27/24 01:53 Completed Blood Culture (Lab) Stat Lab 07/27/24 01:49 Received CBC Stat Lab 07/27/24 01:53 Completed Comprehensive Metabolic Panel Stat Lab 07/27/24 01:53 Completed HCG,Qualitative Serum Stat Lab 07/27/24 01:53 Completed Lactate (Lactic Acid) Stat Lab 07/27/24 01:53 Completed PT [Prothrombin Time with INR] Stat Lab 07/27/24 01:53 Completed PTT [Partial Thromboplastin Time] Stat Lab 07/27/24 01:53 Completed Procalcitonin Stat Lab 07/27/24 01:53 Completed Troponin I Stat Lab 07/27/24 01:53 Completed Urinalysis Stat Lab 07/27/24 02:20 Completed Urine Culture Stat Lab 07/27/24 02:26 Received ALBUTEROL RT 0.5ml [Proventil Rt 0.5ml] Med 07/27/24 01:34 Discontinued 10 mg INH X1 ONE Azithromycin Inj [Zithromax Inj] 500 mg Med 07/27/24 03:19 Active Sodium Chloride 0.9% 250 ml [Ns] 250 ml IV X1 Ipratropium [place] Rt Abby [Atrovent Rt Abby] Med 07/27/24 01:34 Discontinued 1 mg INH X1 ONE MethylPREDNISolone.* [SoluMEDROL Inj] Med 07/27/24 03:27 Discontinued 125 mg IVP X1 ONE Sodium Chloride 0.9% 1000 ml [Ns] 1,000 ml Med 07/27/24 01:30 Discontinued IV 999 mls/hr Sodium Chloride Rt Abby 0.9% [NS Rt Abby 0.9%] Med 07/27/24 01:34 Active 3 ml INH PRN PRN cefTRIAXone/D5w 1gm IV premix [Rocephin/D5w 1gm IV Med 07/27/24 01:33 Discontinued premix] 50 ml IV X1 Vital Signs Vital signs: Vital Signs Temperature 98.6 F 07/27/24 00:23 Pulse Rate 87 07/27/24 00:23 Respiratory Rate 19 07/27/24 00:23 Blood Pressure 130/94 H 07/27/24 00:23 Pulse Oximetry (%) 78 L 07/27/24 00:23 Oxygen Delivery Method Room Air 07/27/24 00:23 Procedures -ED EKG Interpretation #1: Date of EK07/27/24 Rate: 81 Interpretation: Interpreted by me EKG Impression: Normal sinus rhythm, No ectopy, Normal intervals and Non-specific ST-T Additional EKG comment: Low voltage in anterior leads. [facility] [place] Patient data External records reviewed:: [facility] previous records (Per chart review, patient was seen here earlier tonight and was diagnosed with Influenza.) Clinical information provided by:: patient Social determinants that could affect healthcare access:: mental health Patient has the following chronic illnesses:: DM, HTN, schizophrenia How is presenting disease/condition affected by chronic disease/condition?: caused by Evaluation data The following diagnostics were reviewed and interpreted by me:: lab results and radiology exam(s) Lab and/or radiology exams considered but not ordered:: none Interpretation Summary: See below under MDM narratve. Medications Medications considered but not ordered:: none Medication administrations:: Medication Administration History Azithromycin 500 mg/ Sodium (Chloride) 250 mls @ 250 mls/hr IV X1 ONE Stop: 07/27/24 04:18 Sodium Chloride (Sodium Chloride Rt Abby 0.9% 3 Ml Nebu) 3 ml INH PRN PRN PRN Reason: SOLN Stop: 08/26/24 01:33 Last Admin: 07/27/24 02:22 Dose: 3 ml Documented By: YUSEF Discontinued Medications Albuterol (Albuterol Rt 2.5 Mg/0.5 Ml Nebu) 10 mg INH X1 ONE Stop: 07/27/24 01:35 Last Admin: 07/27/24 02:22 Dose: 10 mg Documented By: YUSEF Sodium Chloride (Ns) 1,000 mls @ 999 mls/hr IV .Q1H1M ONE Stop: 07/27/24 02:30 Last Admin: 07/27/24 02:05 Dose: 999 mls/hr Documented By: YVONNE Ceftriaxone Sodium/Dextrose (Rocephin/D5w 1gm Iv Premix) 50 mls @ 100 mls/hr IV X1 ONE Stop: 07/27/24 02:02 Last Infusion: 07/27/24 02:38 Dose: Infused Documented By: Admin: 07/27/24 02:04 Dose: 100 mls/hr Documented By: YVONNE Ipratropium [place] (Ipratropium Rt 0.5 Mg/ 2.5 Ml Nebu) 1 mg INH X1 ONE Stop: 07/27/24 01:35 Last Admin: 07/27/24 02:22 Dose: 1 mg Documented By: YUSEF Methylprednisolone Sodium Succinate (Methylprednisolone Sod Succ 62.5 Mg/Ml 2ml Vial) 125 mg IVP X1 ONE Stop: 07/27/24 03:28 none Consultations Consultation(s) initiated? (list below): Yes Diagnosis Differential Diagnosis ED Complaint MDM: anxiety, malingering, depression, schizophrenia, morbid obesity Most likely diagnosis given after review of the tests above:: see below Admission Indicated Admission indicated?: not indicated Explain why admission is indicated or not indicated:: See MDM. Admission Request Was there a request for admission?: Yes Admission Attestation Admission request attestation: Discussed case with [] from Hospitalist service regarding admission. Discussed patients ED course, exam findings, labs, and radiology results. The Hospitalist [agrees,declines] to accept the patient for admission. Disposition Plan Disposition Plan: Admit Medical Decision Making MDM Narrative MDM Narrative: Scribe Attestation: 07/27/24 - Zarina Zamudio am scribing for and in the presence of Dr. Huddleston. Patient was seen by me just about 5 to 6 hours ago and was diagnosed with influenza A and B. I gave her a prescription of Tamiflu as well as 1 tablet of the same here and discharge her home and now she called the ambulance again stating that she is disappearing, she has aches and pains all over but no fall or injuries. Now she says that she has numbness in her tongue, chest pain, upper back pain and also abdominal pain. She has been having dry coughing and shortness of breath. She has had fever but she did not check her temperature at home. Here her temperature is normal. She says that she vomited 3 times and she had diarrhea 3 times. She says that she has been sweating and having UTI symptoms. Patient is a schizophrenic and she comes to the emergency room multiple times in a week. I obtained a chest x-ray on her and it shows that she has right lower lobe infiltrate but no cardiomegaly, perihilar congestion or pleural effusion, according to my interpretation. Therefore I will order some blood work and give her a shot of Rocephin because of possibility of superimposed bacterial pneumonia on the top of the influenza virus. Looking at her old records, patient was intubated for 6 days on 04/06/2024 here in this hospital. At 3:20 AM, patient is still having the breathing treatment. The nurse tells me that as she walked to the bathroom and came back her pulse ox dropped to 74% on room air. Therefore I think that the patient needs to be admitted to the hospital. I ordered Zithromax 500 mg IV in addition to initial Rocephin, as well as Solu-Medrol 125 mg IV. I discussed this case with Dr. Rios, PGY2 and she will admit her to the hospital. Provider Notation: Although this document has been carefully reviewed, there may still be some phonetic and other typographical errors. These errors are purely grammatical due to imperfections in the software program and should not be construed in any way to compromise the substance of the patient's medical care during this visit. Differential Diagnosis Differential Diagnosis: anxiety, malingering, depression, schizophrenia, morbid obesity Lab Data 07/27/24 01:53 07/27/24 01:53 Labs: Lab Results 07/27/24 07/27/24 Range/Units 01:53 02:20 WBC 15.9 H (3.6-11.0) Thou/mm3 RBC 4.47 (4.00-5.20) Miln/mm3 Hgb 10.8 L (12.0-16.0) g/dL Hct 36.3 (36.0-46.0) % MCV 81 (80-100) fL MCH 24.2 L (25.0-35.0) pg MCHC 29.8 L (31.0-37.0) g/dl RDW Std Deviation 70.5 H (36.4-46.3) fL Plt Count 363 D (140-440) Thou/mm3 Neut % (Auto) 74 (37-80) % Lymph % (Auto) 15 (10-50) % Lewis % (Auto) 8 (0-12) % Eos % (Auto) 2 (0-10) % Baso % (Auto) 0 (0-2.5) % Neut # (Auto) 11.8 H (1.8-7.7) Thou/mm3 Lymph # (Auto) 2.3 (1.0-4.8) Thou/mm3 Lewis # (Auto) 1.3 H (0.0-0.8) Thou/mm3 Eos # (Auto) 0.3 (0.0-0.5) Thou/mm3 Baso # (Auto) 0.1 (0.0-0.2) Thou/mm3 Immature Gran # (Auto) 0.20 H (0.00-0.00) Thou/mm3 Absolute Nucleated RBC 0.11 H (0.00-0.00) Thou/mm3 Immature Gran % 1 H (0-0) % Nucleated RBC % 1 H (0) /100 WBC PT 11.4 (9.0-12.2) Seconds INR 1.0 (0.9-1.3) APTT 26.5 (22.0-36.0) Seconds Sodium 138 (136-145) mMol/L Potassium 4.6 (3.4-5.1) mMol/L Chloride 103 (98-107) mMol/L Carbon Dioxide 31.7 H (20.0-31.0) mMol/L Anion Gap 3 L (7-16) BUN 9 (9-23) mg/dL Creatinine 0.5 L (0.6-1.3) mg/dL Estim Creat Clear Calc 298.4 (>60) mL/min eGFR > 60 (60 - ) See Note BUN/Creatinine Ratio 18 (12-20) Ratio Glucose 103 (74-106) mg/dL Calculated Osmolality 274 L (275-295) Lactic Acid 1.1 (0.4-2.0) mMol/L Calcium 8.7 (8.3-10.6) mg/dL Corrected Calcium 8.7 (8.5-10.1) mg/dL Total Bilirubin 0.4 (0.3-1.2) mg/dL AST 12 (0-34) U/L ALT 19 (10-49) U/L Alkaline Phosphatase 113 (46-116) U/L Troponin I < 0.020 (0.0-0.045) ng/mL B-Natriuretic Peptide 88 (0-100) pg/mL Total Protein 6.5 (5.7-8.2) gm/dL Albumin 4.2 (3.5-5.0) gm/dL Globulin 2.3 (2.3-3.5) gm/dL Albumin/Globulin Ratio 1.8 (1.2-2.2) Procalcitonin 0.08 (0.0-0.49) ng/ml HCG, Qual Negative Ur Collection Type Clean Catch Urine Color Colorless A (Lt Yel-Yel) Urine Clarity Clear (Clear/Hazy) Urine pH 6.0 (5.0-7.0) Ur Specific [place] 1.009 (1.001-1.035) Urine Protein Negative (Neg - Trace) Urine Glucose (UA) Negative (Negative) Urine Ketones Negative (Negative) Urine Blood Negative (Negative) Urine Nitrite Negative (Negative) Urine Bilirubin Negative (Negative) Urine Urobilinogen (Auto) Negative (0.0-1.0) mg/dL Ur Leukocyte Esterase Negative (Negative) Urine RBC 1 (0-3) /hpf Urine WBC 1 (0-5) /hpf Ur Squamous Epith Cells < 1 (0-5) /hpf Urine Bacteria None (None) Hyaline Casts < 1 (0-1) /hpf Critical Care Time Critical Care Time Critical Care Time: Yes Total Critical Care Time (min.): 45 Attestation: The high probability of sudden, clinically significant deterioration in the patient?s condition required the highest level of my preparedness to intervene urgently. The services I provided to this patient were to treat and/or prevent clinically significant deterioration. Services included the following: chart data review, reviewing nursing notes and/or old charts, documentation time, health management consultant collaboration regarding findings and treatment options, medication orders and management, direct patient care, vital sign assessments and ordering, interpreting and reviewing diagnostic studies and lab tests. Aggregate critical care time includes only time during which I was engaged in work directly related to the patient?s care, as described above, whether at bedside or elsewhere in the Emergency Department. It did not include time spent performing other reported procedures or the services of residents, students, nurses or physician assistants. Discharge Plan Plan Patient Disposition: Admit Acute Care w/in Hospital Prescriptions/Referrals Prescriptions/Med Rec: No Action metformin 1,000 mg tablet 500 mg PO BID Patient Comments: TOME LUIS FERNANDO TABLETA DOS VECES AL D A CON ALIMENTO (DME) FreeStyle Rosales 2 [place] Misc See Rx Instructions .Route Qty: 1 0RF Rx Instructions: As directed (DME) FreeStyle Rosales 2 Sensor Kit See Rx Instructions .Route Qty: 1 0RF Rx Instructions: As directed metformin 1,000 mg tablet 1,000 mg PO BID Qty: 60 0RF cefuroxime axetil 500 mg tablet 500 mg PO BID Qty: 14 0RF polyethylene glycol 3350 [Miralax] 17 gram/dose powder 4 g PO QDAY Qty: 119 0RF oseltamivir [Tamiflu] 75 mg capsule 75 mg PO BID 5 Days Qty: 10 0RF acetaminophen 500 mg capsule 1,000 mg PO Q6H PRN (Reason: fever or pain) Qty: 30 0RF haloperidol 2 mg tablet 2 mg PO BID Patient Comments: TOME LUIS FERNANDO TABLETA POR V A ORAL DOS VECES AL D A lisinopril 20 mg Tablet 40 mg PO QDAY 30 Days Qty: 60 1RF carvedilol [Coreg] 3.125 mg Tablet 3.125 mg PO BID Rx Instructions: must administer with a meal/food Trintellix 10 mg Tablet 10 mg PO HS Rexulti 2 mg tablet 3 mg PO HS Zilactin-B 10 % Gel See Rx Instructions .ROUTE .COMPLEX PRN (Reason: MOUTH/DENTAL PAIN) Qty: 7 0RF Rx Instructions: apply twice a day as needed atorvastatin 20 mg Tablet 40 mg PO HS Qty: 30 0RF polyethylene glycol 3350 [HealthyLax] 17 gram Powder In Packet 17 g PO QDAY PRN (Reason: constipation) Qty: 30 0RF ondansetron 4 mg tablet,disintegrating 4 mg PO Q8H PRN (Reason: nausea and vomiting) Qty: 10 0RF Referrals: [facility] [Outside] - 07/27/24 12:00 am Problem List Clinical Impression: Influenza A, Right lower lobe pneumonia, Morbid obesity, Hypoxemia, Hx of schizophrenia Patient/Caregiver Discharge Instructions Print Language: Mongolian Stand Alone Forms: Zandra Award Info., Patient Portal Info Letter
--- NOTE | 2024-07-27 00:37 | XR_ITS ---
Examination: AP chest single view Technique one AP portable upright chest single view Exam date and time: July 27, 2024 0110 hrs. Comparison June 28, 2024 Indications: Coughing today. Findings: Poor inspiratory effort Extensive bilateral lung opacity more severe in the right lung consistent with pneumonia Normal heart size Intact osseous structures Impression: Extensive bilateral pneumonia
[2024-07-27] MEDS: cefTRIAXone/D5w 1gm IV premix 50 ML IV (02:04)
[2024-07-27 02:05] LABS: Lactate (Lactic Acid) 1.1 mMol/L (0.4-2.0)
[2024-07-27] MEDS: SODIUM CHLORIDE 0.9% 1000 ML 1,000 ML 999 ML IV (02:05)
[2024-07-27 02:07] LABS: Hematocrit 36.3 % (36.0-46.0); Hemoglobin 10.8 g/dL (12.0-16.0); Mean Corpuscular Hemoglobin 24.2 pg (25.0-35.0); Mean Corpuscular Volume 81 fL (80-100); Red Blood Count 4.47 Miln/mm3 (4.00-5.20); White Blood Count 15.9 Thou/mm3 (3.6-11.0)
[2024-07-27 02:08] LABS: Basophils # (Auto) 0.1 Thou/mm3 (0.0-0.2); Basophils % (Auto) 0 % (0-2.5); Eosinophils # (Auto) 0.3 Thou/mm3 (0.0-0.5); Eosinophils % (Auto) 2 % (0-10); Immature Granulocytes % (Auto) 1 % (0-0); Lymphocytes # (Auto) 2.3 Thou/mm3 (1.0-4.8); Lymphocytes % (Auto) 15 % (10-50); Mean Corpuscular HGB Conc 29.8 g/dl (31.0-37.0); Monocytes # (Auto) 1.3 Thou/mm3 (0.0-0.8); Monocytes % (Auto) 8 % (0-12); Neutrophils # (Auto) 11.8 Thou/mm3 (1.8-7.7); Neutrophils % (Auto) 74 % (37-80); Nucleated Red Blood Cell # 0.11 Thou/mm3 (0.00-0.00); Nucleated Red Blood Cell % 1 /100 WBC (0); Platelet Count 363 Thou/mm3 (140-440); RDW Standard Deviation 70.5 fL (36.4-46.3)
[2024-07-27 02:21] LABS: Partial Thromboplastin Time 26.5 Seconds (22.0-36.0); Prothrombin Time 11.4 Seconds (9.0-12.2)
[2024-07-27] MEDS: ALBUTEROL RT 2.5 MG/0.5 ML NEBU 10 MG INH (02:22)
[2024-07-27] MEDS: IPRATROPIUM RT 0.5 MG/ 2.5 ML NEBU 1 MG INH (02:22)
[2024-07-27] MEDS: SODIUM CHLORIDE RT SOL 0.9% 3 ML NEBU INH (02:22)
[2024-07-27 02:25] LABS: B-Type Natriuretic Peptide 88 pg/mL (0-100)
[2024-07-27 02:27] LABS: Collection Type, Urine Clean Catch
[2024-07-27 02:29] LABS: HCG,Qualitative Serum Negative
[2024-07-27 02:30] LABS: Bilirubin,Urine Negative (Negative); Blood,Urine Negative (Negative); Clarity,Urine Clear (Clear/Hazy); Color,Urine Colorless (Lt Yel-Yel); Glucose, Urine Negative (Negative); Hyaline Casts,Urine < 1 /hpf (0-1); Ketones,Urine Negative (Negative); Leukocyte Esterase,Urine Negative (Negative); Nitrite,Urine Negative (Negative); Protein,Urine Negative (Neg - Trace); RBC,Urine 1 /hpf (0-3); Specific Gravity,Urine 1.009 (1.001-1.035); Squamous Epithelial Cell,Urine < 1 /hpf (0-5); Urobilinogen,Urine Negative mg/dL (0.0-1.0); WBC,Urine 1 /hpf (0-5)
[2024-07-27 02:38] LABS: Alanine Aminotransferase 19 U/L (10-49); Albumin, Serum 4.2 gm/dL (3.5-5.0); Albumin/Globulin Ratio 1.8 (1.2-2.2); Alkaline Phosphatase 113 U/L (46-116); Anion Gap 3 (7-16); Aspartate Amino Transferase 12 U/L (0-34); BUN/Creatinine Ratio 18 Ratio (12-20); Bilirubin,Total 0.4 mg/dL (0.3-1.2); Blood Urea Nitrogen 9 mg/dL (9-23); Calcium 8.7 mg/dL (8.3-10.6); Calcium (Corrected) 8.7 mg/dL (8.5-10.1); Carbon Dioxide 31.7 mMol/L (20.0-31.0); Chloride 103 mMol/L (98-107); Creatinine (Component) 0.5 mg/dL (0.6-1.3); Estimated Creatinine Clearance 298.4 mL/min (>60); Globulin 2.3 gm/dL (2.3-3.5); Glucose 103 mg/dL (74-106); Osmolality,Calculated 274 (275-295); Potassium 4.6 mMol/L (3.4-5.1); Procalcitonin 0.08 ng/ml (0.0-0.49); Sodium 138 mMol/L (136-145); Total Protein 6.5 gm/dL (5.7-8.2); Troponin I < 0.020 ng/mL (0.0-0.045); eGFR > 60 See Note
[2024-07-27] MEDS: MethylPREDNISolone SOD SUCC 62.5 MG/ML 2ML VIAL 125 MG IVP (03:40)
[2024-07-27] MEDS: AZITHROMYCIN INJ 500 MG in SODIUM CHLORIDE 0.9% 250 ML 250 ML 250 MG IV (03:41)
--- NOTE | 2024-07-27 04:14 | ESHP_ITS ---
<Statement entered by Jose Alfredo Willoughby MD - 07/27/24 06:35> I was present for the essential components of the history, physical examination, diagnosis, and treatment plan with the resident. I have reviewed the documentation, discussed the case with the resident and agree with the patient's care as documented by the resident. Jose Alfredo Willoughby MD Documentation for date of: 07/27/24 HPI History of Present Illness History of present illness: Mikaela Houston is a 24-year-old female with a past medical history of type 2 diabetes mellitus, hypertension, schizophrenia, and obesity who presents with shortness of breath. Patient initially presented to ED on 07/26 for shortness of breath and was diagnosed with influenza A and B then was sent home with Tamiflu. She represented to ED 5 to 6 hours later stating she felt like she was disappering . During encounter, patient also stated that she was hearing voices telling her to leave [place]. States that she takes all of her medications as prescribed. Otherwise, patient does endorse fever, chills, productive cough, and shortness of breath over the course of a day. ED course: BP 153/70, RR 24, 100% on 4 L NC WBC 15.9, Hgb 10.8, lactic acid WNL, Pro-Bradley negative, troponin and BNP negative In ED given ceftriaxone and azithromycin, DuoNebs, 1 L NS bolus, methylprednisolone 125 mg x 1 PMHx: As noted above Medications: Atorvastatin 20 mg, Aripiprazole 10 mg, Quetiapine 25 mg BID, Benztropine 0.5 mg BID, Carvedilol 25 mg, Lisinopril 40 mg SHx: denies cigarette, alcohol, and illicit drug use Allergies: NKDA Review of Systems Review of Systems Systems Reviewed: All systems reviewed, normal except as documented Exam Vital Signs Temp Pulse Resp BP Pulse Ox O2 Del Method O2 Flow Rate 98.6 F 87 24 H 153/70 H 86 L Nasal Cannula 4 07/27/24 00:23 07/27/24 04:05 07/27/24 04:05 07/27/24 04:05 07/27/24 04:05 07/27/24 02:01 07/27/24 02:22 Narrative Exam General: obese habitus, hirsutism, AOx3, no acute distress HEENT: NC/AT, mucous membranes moist, bilateral sclera anicteric Cardiovascular: regular rate and rhythm, S1/S2 present, no murmurs appreciated Pulmonary: difficult to auscultate due to body habitus Abdominal: obese, soft, non-tender, no rebound/guarding Musculoskeletal: normal ROM, no peripheral edema Skin: warm and dry, intact, no rashes Neuro: CN II-XII intact, no focal deficits Results: Labs 07/27/24 01:53 07/27/24 01:53 Labs: Short CBC 07/27/24 Range/Units 01:53 WBC 15.9 H (3.6-11.0) Thou/mm3 Hgb 10.8 L (12.0-16.0) g/dL Hct 36.3 (36.0-46.0) % Plt Count 363 D (140-440) Thou/mm3 BMP 07/27/24 01:53 Sodium 138 Potassium 4.6 Chloride 103 Carbon Dioxide 31.7 H BUN 9 Creatinine 0.5 L Glucose 103 Calcium 8.7 Cardiac Enzymes 07/27/24 Range/Units 01:53 Troponin I < 0.020 (0.0-0.045) ng/mL Liver Function 07/27/24 Range/Units 01:53 Total Bilirubin 0.4 (0.3-1.2) mg/dL AST 12 (0-34) U/L ALT 19 (10-49) U/L Alkaline Phosphatase 113 (46-116) U/L Albumin 4.2 (3.5-5.0) gm/dL Urine 07/27/24 Range/Units 02:20 Urine Color Colorless A (Lt Yel-Yel) Urine Clarity Clear (Clear/Hazy) Urine pH 6.0 (5.0-7.0) Ur Specific [place] 1.009 (1.001-1.035) Urine Protein Negative (Neg - Trace) Urine Glucose (UA) Negative (Negative) Quality Measures Quality Measures none Medications Home Medications and Allergies Home Medications ?Medication ?Instructions ?Recorded ?Confirmed ?Type haloperidol 2 mg tablet 2 mg PO BID 11/05/23 04/23/24 History brexpiprazole 2 mg tablet (Rexulti) 3 mg PO HS 04/08/24 04/23/24 History carvedilol 3.125 mg tablet (Coreg) 3.125 mg PO BID 04/08/24 04/23/24 History vortioxetine 10 mg tablet 10 mg PO HS 04/08/24 04/23/24 History (Trintellix) metformin 1,000 mg tablet 500 mg PO BID 04/23/24 04/23/24 History Allergies Allergy/AdvReac Type Severity Reaction Status Date / Time No Known Allergies Allergy Verified 07/20/24 08:52 Visit Medications Acetaminophen (Acetaminophen 325 Mg Tablet) 650 mg PO Q6H PRN PRN Reason: PAIN OR FEVER > 101 Stop: 08/26/24 03:56 Heparin Sodium (Porcine) (Heparin Sod Inj 5000 Unit/Ml Vial) 5,000 unit SC Q12HR SHAWN Stop: 08/10/24 08:59 Azithromycin 500 mg/ Sodium (Chloride) 250 mls @ 250 mls/hr IV X1 ONE Stop: 07/27/24 04:18 Last Admin: 07/27/24 03:41 Dose: 250 mls/hr Ceftriaxone Sodium/Dextrose (Rocephin/D5w 1gm Iv Premix) 50 mls @ 100 mls/hr IV QDAY SHAWN Stop: 08/04/24 08:59 Azithromycin 500 mg/ Sodium (Chloride) 250 mls @ 250 mls/hr IV QDAY SHAWN Stop: 08/04/24 08:59 Ondansetron HCl (Ondansetron Inj 2 Mg/Ml Inj 2 Ml) 4 mg IV Q6H PRN; Protocol PRN Reason: NAUSEA OR VOMITING Stop: 08/26/24 03:56 Oseltamivir Phosphate (Oseltamivir 6 Mg/Ml) 75 mg PO BID SHAWN Stop: 08/03/24 04:09 Sodium Chloride (Sodium Chloride Rt Abby 0.9% 3 Ml Nebu) 3 ml INH PRN PRN PRN Reason: SOLN Stop: 08/26/24 01:33 Last Admin: 07/27/24 02:22 Dose: 3 ml Discontinued Medications Albuterol (Albuterol Rt 2.5 Mg/0.5 Ml Nebu) 10 mg INH X1 ONE Stop: 07/27/24 01:35 Last Admin: 07/27/24 02:22 Dose: 10 mg Sodium Chloride (Ns) 1,000 mls @ 999 mls/hr IV .Q1H1M ONE Stop: 07/27/24 02:30 Last Infusion: 07/27/24 04:08 Dose: Infused Ceftriaxone Sodium/Dextrose (Rocephin/D5w 1gm Iv Premix) 50 mls @ 100 mls/hr IV X1 ONE Stop: 07/27/24 02:02 Last Infusion: 07/27/24 02:38 Dose: Infused Ipratropium [place] (Ipratropium Rt 0.5 Mg/ 2.5 Ml Nebu) 1 mg INH X1 ONE Stop: 07/27/24 01:35 Last Admin: 07/27/24 02:22 Dose: 1 mg Methylprednisolone Sodium Succinate (Methylprednisolone Sod Succ 62.5 Mg/Ml 2ml Vial) 125 mg IVP X1 ONE Stop: 07/27/24 03:28 Last Admin: 07/27/24 03:40 Dose: 125 mg Assessment & Plan Plan Mikaela Houston is a 24-year-old female with a past medical history of type 2 diabetes mellitus, hypertension, hyperlipidemia, schizophrenia, and obesity who is admitted for management of AHRF secondary to influenza. #Acute hypoxic respiratory failure, secondary to #Sepsis, secondary to #Influenza A and B Presents with shortness of breath, fever, chills, and productive cough for 1 day. Influenza A and B positive, COVID-negative. SIRS 2/4: RR 22, WBC 15.9. Source: influenza A/B -> sepsis. ? Oseltamivir 75 mg p.o. twice daily ? Ceftriaxone and azithromycin for CAP coverage ? Follow-up blood and urine cultures ? O2 supplementation as needed #Schizophrenia Restarted medications according to medication history. Still pending med rec. ? Aripiprazole 10 mg daily ? Quetiapine fumarate 25 mg twice daily ? Benztropine 0.5 mg twice daily #Hypertension ? Lisinopril 40 mg daily ? Carvedilol 25 mg daily #Type 2 diabetes mellitus A1c 5.5% on 04/2024. ? SSI ? Follow-up A1c #Hyperlipidemia ? Atorvastatin 20 mg p.o. daily ? Follow-up lipid panel Hospital management: Disposition: 2-3 hospital nights Fluids: not indicated Diet: carb consistent low Lines: peripheral DVT prophylaxis: heparin SC BID CODE STATUS: full code ----- Plan discussed with attending physician Dr. Fartun Diaz MD PGY-1 Internal Medicine
--- NOTE | 2024-07-27 04:24 | PC.NURSE ---
PATIENT TESTED POSITIVE Thursday07/26/2024 FOR FLU, AND NEG FOR COVID. PER DR RODRIGUEZ DO NOT NEED TO RETEST.
--- NOTE | 2024-07-27 04:49 | PC.NURSE ---
COVID NEGATIVE 11/24/23. SONALI Perkins TESTED PT. NEGATIVE/[id number]/11/05/25. PT WAS DC HOME AT 1922 ON 07/26/24 AND RETURNED TO ED 0005 ON 07/27/24.
[2024-07-27 06:47] LABS: Glucose Estimated Average 103 mg/dL (80-131); Hemoglobin A1C 5.2 % Hgb (4.8-6.0)
--- NOTE | 2024-07-27 08:38 | PC.NURSE ---
CALLED PHARMACY FOR ROUTINE MEDS
[2024-07-27] MEDS: Lisinopril 20 MG TABLET 40 MG PO (08:41)
[2024-07-27] MEDS: HEPARIN SOD INJ 5000 UNIT/ML VIAL SC ×2 (08:42→20:09)
[2024-07-27] MEDS: OSELTAMIVIR 75 MG CAPSULE PO ×2 (09:26→20:09)
[2024-07-27] MEDS: ARIPiprazole 5 MG TABLET 10 MG PO (10:13)
[2024-07-27] MEDS: carVEDILOL 12.5 MG TABLET 25 MG PO ×2 (10:14→18:09)
[2024-07-27] MEDS: QUEtiapine FUMARATE 25 MG TABLET PO ×2 (10:15→20:09)
--- NOTE | 2024-07-27 16:07 | ESPR_ITS ---
<Statement entered by Colin Flores MD - 07/27/24 16:24> Senior Resident Attestation: I supervised/discussed management plan with resident physician Dr. Badillo, and was involved in the care of this patient. I personally saw and examined the patient and discussed the assessment and plan with the entire medicine team, including my attending. I agree with the assessment and plan as documented. Patient's care was discussed with attending physician, Dr. Irma Flores MD PGY-3 Documentation for date of: 07/27/24 Subjective Subjective Interval history: Patient seen at bedside. She is a 24-year-old female with past medical history of hypertension, hyperlipidemia, schizophrenia and morbid obesity who presented to the ED in the early hours of today, 07/27/2024 with shortness of breath, fevers, chills and productive cough. On admission, patient was hypoxic, influenza AMB positive, COVID-negative. Patient is being managed for AHRF secondary to influenza and possible superimposed bilateral pneumonia. Patient is currently on ceftriaxone and azithromycin as well as oseltamivir.. Exam Vital Signs Temp Pulse Resp BP Pulse Ox O2 Del Method O2 Flow Rate 99.1 F 85 26 H 145/81 H 95 Room Air 5 07/27/24 12:08 07/27/24 12:08 07/27/24 12:08 07/27/24 12:08 07/27/24 12:08 07/27/24 12:08 07/27/24 09:28 Narrative Exam GENERAL: AAOX3, morbidly obese NEURO: CAR RECORD CLERK grossly intact, moves extremities x4 HEENT: Dry mucosa. Eyes open, symmetrical, & clear CARDIO: No chest pain on palpation. Heart RRR, no obvious murmurs PULM: No noted coughing/dyspnea. Crackles bilaterally, although soft due to body habitus GI: Abdomen soft, nondistended, no pain on palpation. BSx4 URO/UNIT RECEPTIONIST:: No further abnormalities noted. SKIN/MSK/EXT: No wounds/rashes/edema/amputations, no pain on palpation. Pedal pulses present B/L Objective Labs 07/28/24 04:35 07/28/24 04:35 Labs: Laboratory Results - last 24 hr 07/27/24 07/27/24 01:53 02:20 WBC 15.9 H RBC 4.47 Hgb 10.8 L Hct 36.3 MCV 81 MCH 24.2 L MCHC 29.8 L RDW Std Deviation 70.5 H Plt Count 363 D Neut % (Auto) 74 Lymph % (Auto) 15 [place] % (Auto) 8 Eos % (Auto) 2 Baso % (Auto) 0 Neut # (Auto) 11.8 H Lymph # (Auto) 2.3 [place] # (Auto) 1.3 H Eos # (Auto) 0.3 Baso # (Auto) 0.1 Immature Gran # (Auto) 0.20 H Absolute Nucleated RBC 0.11 H Immature Gran % 1 H Nucleated RBC % 1 H PT 11.4 INR 1.0 APTT 26.5 Sodium 138 Potassium 4.6 Chloride 103 Carbon Dioxide 31.7 H Anion Gap 3 L BUN 9 Creatinine 0.5 L Estim Creat Clear Calc 298.4 eGFR > 60 BUN/Creatinine Ratio [address] Glu mg/dL 103 Hemoglobin A1c 5.2 Calculated Osmolality 274 L Lactic Acid 1.1 Calcium 8.7 Corrected Calcium 8.7 Total Bilirubin 0.4 AST 12 ALT 19 Alkaline Phosphatase 113 Troponin I < 0.020 B-Natriuretic Peptide 88 Total Protein 6.5 Albumin 4.2 Globulin 2.3 Albumin/Globulin Ratio 1.8 Procalcitonin 0.08 HCG, Qual Negative Ur Collection Type Clean Catch Urine Color Colorless A Urine Clarity Clear Urine pH 6.0 Ur Specific [place] 1.009 Urine Protein Negative Urine Glucose (UA) Negative Urine Ketones Negative Urine Blood Negative Urine Nitrite Negative Urine Bilirubin Negative Urine Urobilinogen (Auto) Negative Ur Leukocyte Esterase Negative Urine RBC 1 Urine WBC 1 Ur Squamous Epith Cells < 1 Urine Bacteria None Hyaline Casts < 1 Quality Measures Quality Measures none Assessment & Plan Assessment Current Active Medications: Generic Name Dose Route Start Last Admin Trade Name Freq PRN Reason Stop Dose Admin Acetaminophen 650 mg 07/27/24 03:57 Acetaminophen 325 Mg Tablet PO 08/26/24 03:56 Q6H PRN PAIN OR FEVER > 101 Aripiprazole 10 mg 07/27/24 09:00 07/27/24 10:13 Aripiprazole 5 Mg Tablet PO 08/26/24 08:59 10 mg QDAY SHAWN Administration Atorvastatin Calcium 20 mg 07/27/24 21:00 Atorvastatin Calcium 20 Mg Tablet PO 08/26/24 20:59 HS SHAWN Benzonatate 200 mg 07/27/24 13:36 Benzonatate 100 Mg Capsule PO 08/26/24 13:35 Q8HR PRN COUGH Protocol Benztropine Mesylate 0.5 mg 07/27/24 21:00 Benztropine 0.5 Mg Tablet PO 08/26/24 20:59 HS SHAWN Carvedilol 25 mg 07/27/24 08:00 07/27/24 10:14 Carvedilol 12.5 Mg Tablet PO 08/26/24 07:59 25 mg BIDWM SHAWN Administration Dextrose 25 ml 07/27/24 04:41 Dextrose 50%-Water Inj 50 Ml Syringe IV 08/26/24 04:40 Q15MIN PRN BG 50-70 responsive npo pt Dextrose 50 ml 07/27/24 04:41 Dextrose 50%-Water Inj 50 Ml Syringe IV 08/26/24 04:40 Q15MIN PRN BG <50 OR BG <70 & pt unresponsive Glucagon 1 mg 07/27/24 04:41 Glucagon Inj 1 Mg Vial IM Q15MIN PRN BG <70, and no IV access Heparin Sodium (Porcine) 5,000 unit 07/27/24 09:00 07/27/24 08:42 Heparin Sod Inj 5000 Unit/Ml Vial SC 08/10/24 08:59 5,000 unit Q12HR SHAWN Administration Ceftriaxone Sodium/Dextrose 50 mls @ 100 mls/hr 07/28/24 21:00 Rocephin/D5w 1gm Iv Premix IV 08/04/24 20:59 DAILY@2100 ON LICENSE OF [facility] Azithromycin 500 mg/ Sodium 250 mls @ 250 mls/hr 07/28/24 21:00 Chloride IV 08/04/24 20:59 DAILY@2100 ON LICENSE OF [facility] Lisinopril 40 mg 07/27/24 09:00 07/27/24 08:41 Lisinopril 20 Mg Tablet PO 08/26/24 08:59 40 mg QDAY SHAWN Administration Ondansetron HCl 4 mg 07/27/24 03:57 Ondansetron Inj 2 Mg/Ml Inj 2 Ml IV 08/26/24 03:56 Q6H PRN NAUSEA OR VOMITING Protocol Oseltamivir Phosphate 75 mg 07/27/24 09:00 07/27/24 09:26 Oseltamivir 75 Mg Capsule PO 08/03/24 04:09 75 mg BID SHAWN Administration Quetiapine Fumarate 25 mg 07/27/24 09:00 07/27/24 10:15 Quetiapine Fumarate 25 Mg Tablet PO 08/26/24 08:59 25 mg BID SHAWN Administration Sodium Chloride 3 ml 07/27/24 01:34 07/27/24 02:22 Sodium Chloride Rt Abby 0.9% 3 Ml Nebu INH 08/26/24 01:33 3 ml PRN PRN Administration SOLN Plan Summary: The patient is a 24-year-old female with a past medical history of type 2 diabetes mellitus, hypertension, hyperlipidemia, schizophrenia, and obesity who is admitted for management of AHRF secondary to influenza. #Acute hypoxic respiratory failure, secondary to #Sepsis, secondary to #Influenza A and B Presents with shortness of breath, fever, chills, and productive cough for 1 day. Influenza A and B positive, COVID-negative. SIRS 2/4: RR 22, WBC 15.9. Source: influenza A/B -> sepsis. Plan: ? CT Oseltamivir 75 mg p.o. twice daily ? Ceftriaxone and azithromycin for CAP coverage ? Follow-up blood and urine cultures ? O2 supplementation as needed #Schizophrenia Restarted medications according to medication history. Still pending med rec. ? Aripiprazole 10 mg daily ? Quetiapine fumarate 25 mg twice daily ? Benztropine 0.5 mg twice daily #Hypertension ? Lisinopril 40 mg daily ? Carvedilol 25 mg daily #Type 2 diabetes mellitus-ruled out A1c 5.9 ?DC SSI ? Follow-up A1c #Hyperlipidemia ? Atorvastatin 20 mg p.o. daily ? Follow-up lipid panel Hospital management: Disposition: 2-3 hospital nights Fluids: not indicated Diet: carb consistent low Lines: peripheral DVT prophylaxis: heparin SC BID CODE STATUS: full code Case was discussed with senior resident Dr Flores PGY-3 and attending physician, Dr Irma Badillo MD PGY-1 Attending Provider Attestation/Addendum I, Leticia Solis DO, attest that I was physically present for the richard portions of the service and evaluated the patient with the resident and I reviewed and discussed the case with the resident and agree with the resident's findings and plans of care as documented above Patient seen and evaluated this AM. Patient states she has had worsening shortness of breath and sore throat. She is currently on 5L/NC. Oropharynx appears to be mildly erythematous on exam. Diminished breath sounds in b/l lung victor due to body habitus. Patient denies any recent sick contacts, but is noted to have had multiple ER visits in the past month for various complaints. She is now flu positive. CXR shows b/l pneumonia for which patient is covered with tamiflu and empiric antibiotics for atypical pneumonia. She denies any fevers or chills. Patient states she wants pudding, jello and milk. Upon further chart review, patient had been admitted to the ICU in March for COVID pneumonia. Will upgrade patient to med/[employer] and place patient on cardiac monitoring. Will continue with current management and titrate O2 as tolerated.
[2024-07-27] MEDS: ATORVASTATIN CALCIUM 20 MG TABLET PO (20:09)
[2024-07-27] MEDS: BENZTROPINE 0.5 MG TABLET PO (20:09)
[2024-07-28] VITALS (16 sets, daily range): BP systolic 114–164; BP diastolic 63–95; PULSE 32–97; RESP 19–23; TEMP 36.4–37.1; O2SAT 91–99
--- NOTE | 2024-07-28 03:49 | PC.NURSE ---
MD Nick Diaz made aware that pt went to bradycardia down to 32 and 3 second pause, pt is asleep, no came back to Sinus Rhythm at 79, no new order made at this time.
[2024-07-28 06:03] LABS: Basophils % (Auto) 0 % (0-2.5); Eosinophils % (Auto) 0 % (0-10); Hematocrit 34.9 % (36.0-46.0); Hemoglobin 10.2 g/dL (12.0-16.0); Immature Granulocytes % (Auto) 1 % (0-0); Immature Granulocytes Auto 0.17 Thou/mm3 (0.00-0.00); Lymphocytes # (Auto) 1.7 Thou/mm3 (1.0-4.8); Lymphocytes % (Auto) 8 % (10-50); Mean Corpuscular HGB Conc 29.2 g/dl (31.0-37.0); Mean Corpuscular Hemoglobin 24.2 pg (25.0-35.0); Mean Corpuscular Volume 83 fL (80-100); Monocytes # (Auto) 1.8 Thou/mm3 (0.0-0.8); Monocytes % (Auto) 9 % (0-12); Neutrophils # (Auto) 16.6 Thou/mm3 (1.8-7.7); Neutrophils % (Auto) 82 % (37-80); Nucleated Red Blood Cell # 0.04 Thou/mm3 (0.00-0.00); Nucleated Red Blood Cell % 0 /100 WBC (0); Platelet Count 397 Thou/mm3 (140-440); RDW Standard Deviation 73.4 fL (36.4-46.3); Red Blood Count 4.21 Miln/mm3 (4.00-5.20); White Blood Count 20.3 Thou/mm3 (3.6-11.0)
[2024-07-28 06:46] LABS: Anion Gap 5 (7-16); BUN/Creatinine Ratio 20 Ratio (12-20); Blood Urea Nitrogen 10 mg/dL (9-23); Cardiac Risk Estimate 3.2 RATIO (3.7-5.6); Chloride 103 mMol/L (98-107); Cholesterol 142 mg/dL (132-200); Creatinine (Component) 0.5 mg/dL (0.6-1.3); Estimated Creatinine Clearance 298.4 mL/min (>60); Glucose 96 mg/dL (74-106); HDL Cholesterol 44 mg/dL (40-60); LDL Cholesterol,Calculated 82 mg/dL (0-130); Magnesium 2.2 mg/dL (1.6-2.6); Osmolality,Calculated 274 (275-295); Potassium 4.7 mMol/L (3.4-5.1); Sodium 138 mMol/L (136-145); Triglycerides 82 mg/dL (30-150); eGFR > 60 See Note
[2024-07-28] MEDS: HEPARIN SOD INJ 5000 UNIT/ML VIAL SC ×2 (08:36→20:48)
[2024-07-28] MEDS: carVEDILOL 12.5 MG TABLET 25 MG PO ×2 (08:37→18:06)
[2024-07-28] MEDS: ARIPiprazole 5 MG TABLET 10 MG PO (08:39)
[2024-07-28] MEDS: Lisinopril 20 MG TABLET 40 MG PO (08:40)
[2024-07-28] MEDS: OSELTAMIVIR 75 MG CAPSULE PO ×2 (08:41→20:16)
[2024-07-28] MEDS: QUEtiapine FUMARATE 25 MG TABLET PO ×2 (08:41→20:16)
--- NOTE | 2024-07-28 12:54 | PC.SS ---
Addendum entered by Vaishali Schmitz 07/28/24 15:02: SS received phone call from Carlie at [place], [place], phone# [phone] who explained pt has 6 SNF days left. Lluvia at [facility], phone# [phone] and fax: [phone], states they can accept pt on Thursday07-30-24, after meeting 3 midnight in pt hospital stay rule from Medicare. Lluvia is requesting PT notes. Garry from [facility] in [place], phone# [phone] will possibly accept pt on Thursday [place], phone# [phone] who over sees [place], [place], and [place] SNFs is reviewing patient's information. Marietta from [facility], phone# [phone] is reviewing inquiry Candis who over sees [facility] SNF in [place], phone# [phone] is also reviewing inquiry. Original Note: SS has sent inquiry using [facility] to SNF outside the area (170 mile radius from [facility]) however the SNF are not appearing on [facility]. SS sent new inquiry using [facility] to SNF in [facility], [place], [facility], and [facility].
--- NOTE | 2024-07-28 12:56 | PC.CC ---
Level 1 PASSR complete; requires Level 2. Vaishali, JUAN, updated.
[2024-07-28 13:33] LABS: Cocci Serology, IgM Negative (Negative)
--- NOTE | 2024-07-28 15:00 | PC.SS ---
SS met with pt and dad regarding her d/c plan. Pt is alert/oriented. Pt was admitted for Influenza. Pt resides with dad. Pt receives $1182.00 in SSI and $60.00 in food stamps. Pt ambulates independently without assistance or DME. Pt is ok with all ADLS. Dad explained pt has an appointment with [facility] Aug 10, 2024 and PCP appointment Aug 15, 2024. Dad is requesting SNF for short term. SS has informed pt and dad attempt can be made for local SNF and outside the area (through [facility]). Pt and dad are aware if SNF is not an option pt will return home. Pt does not use home O2. Pt is currently on 6 liters of O2. Pt named Emilio silva medical decision maker if she is unable. Dad provided updated phone# [phone]. Pt is aware SS has called pt registration to update her facesheet with dad's correct phone#. DC Plan: home vs SNF Next of kin: ricardo [place], phone# [phone] PCP: Dr. Thapa from [facility] Address: Correct on facesheet
[2024-07-28 15:02] LABS: Respiratory Syncytial Virus Ag Negative (Negative)
--- NOTE | 2024-07-28 16:30 | ESPR_ITS ---
<Statement entered by Ibrahima Negron DO - 07/28/24 19:26> Senior attestation: Patient was examined and case was reviewed with team including attending physician. Note reviewed, I agree with most of its contents and agree with the patient's care. Will continue weaning off oxygen as tolerated, WBC uptrended possibly from IV steroid dose yesterday. Will continue with rocephin, azithromycin, and tamiflu, pending final blood and urine cultures. Physical therapy has been ordered, case management team working for SNF placement however patient may require two more nights for insurance authorization. Case management team also working for possible psychiatric follow up regarding patient's psychiatric conditions. Ibrahima Negron DO PGY-3 Documentation for date of: 07/28/24 Subjective Subjective Interval history: Patient seen at bedside. No acute overnight events. At bedside today, patient reports mild improvement in her breathing function. She is currently saturating 96% on 5 L of oxygen. Labs reviewed, WBC uptrending to 20.3, possibly as result of IV steroids given on admission. Vitals showed elevated blood pressure, patient is on lisinopril 40 mg and Coreg 25 twice daily. Will continue to monitor clinical condition and continue patient on IV ceftriaxone, azithromycin and oseltamivir. Pending blood and urine cultures Exam Vital Signs Temp Pulse Resp BP Pulse Ox O2 Del Method O2 Flow Rate 98.2 F 82 22 H 121/81 96 Nasal Cannula 6 07/28/24 12:00 07/28/24 15:11 07/28/24 12:00 07/28/24 12:00 07/28/24 12:00 07/28/24 12:00 07/28/24 12:00 FiO2 18 07/27/24 23:02 Narrative Exam GENERAL: AAOX3, morbidly obese NEURO: MATERIALS DEVELOPMENT ENGINEER grossly intact, moves extremities x4 HEENT: Dry mucosa. Eyes open, symmetrical, & clear CARDIO: No chest pain on palpation. Heart RRR, no obvious murmurs PULM: No noted coughing/dyspnea. Crackles bilaterally, although soft due to body habitus GI: Abdomen soft, nondistended, no pain on palpation. BSx4 URO/COMPUTER SYSTEMS TECHNICIAN:: No further abnormalities noted. SKIN/MSK/EXT: No wounds/rashes/edema/amputations, no pain on palpation. Pedal pulses present B/L Objective Labs 07/29/24 05:10 07/29/24 05:10 Labs: Laboratory Results - last 24 hr 07/28/24 07/28/24 07/28/24 04:35 11:15 12:35 WBC 20.3 H RBC 4.21 Hgb 10.2 L Hct 34.9 L MCV 83 MCH 24.2 L MCHC 29.2 L RDW Std Deviation 73.4 H Plt Count 397 D Neut % (Auto) 82 H Lymph % (Auto) 8 L [place] % (Auto) 9 Eos % (Auto) 0 Baso % (Auto) 0 Neut # (Auto) 16.6 H Lymph # (Auto) 1.7 [place] # (Auto) 1.8 H Eos # (Auto) 0.0 Baso # (Auto) 0.0 Immature Gran # (Auto) 0.17 H Absolute Nucleated RBC 0.04 H Immature Gran % 1 H Nucleated RBC % 0 Sodium 138 Potassium 4.7 Chloride 103 Carbon Dioxide 30.0 Anion Gap 5 L BUN 10 Creatinine 0.5 L Estim Creat Clear Calc 298.4 eGFR > 60 BUN/Creatinine Ratio 20 Glucose 96 Calculated Osmolality 274 L Calcium 9.0 Magnesium 2.2 Triglycerides 82 Cholesterol 142 LDL Cholesterol, Calc 82 HDL Cholesterol 44 Cholesterol/HDL Ratio 3.2 L Coccidioides IgM Ab Negative RSV Rapid Negative Quality Measures Quality Measures none Assessment & Plan Assessment Current Active Medications: Generic Name Dose Route Start Last Admin Trade Name Freq PRN Reason Stop Dose Admin Acetaminophen 650 mg 07/27/24 03:57 Acetaminophen 325 Mg Tablet PO 08/26/24 03:56 Q6H PRN PAIN OR FEVER > 101 Aripiprazole 10 mg 07/27/24 09:00 07/28/24 08:39 Aripiprazole 5 Mg Tablet PO 08/26/24 08:59 10 mg QDAY SHAWN Administration Atorvastatin Calcium 20 mg 07/27/24 21:00 07/27/24 20:09 Atorvastatin Calcium 20 Mg Tablet PO 08/26/24 20:59 20 mg HS SHAWN Administration Azithromycin 500 mg 07/28/24 21:00 Azithromycin 250 Mg Tablet PO 08/04/24 20:59 HS SHAWN Benzonatate 200 mg 07/27/24 13:36 Benzonatate 100 Mg Capsule PO 08/26/24 13:35 Q8HR PRN COUGH Protocol Benztropine Mesylate 0.5 mg 07/27/24 21:00 07/27/24 20:09 Benztropine 0.5 Mg Tablet PO 08/26/24 20:59 0.5 mg HS SHAWN Administration Carvedilol 25 mg 07/27/24 08:00 07/28/24 08:37 Carvedilol 12.5 Mg Tablet PO 08/26/24 07:59 25 mg BIDWM SHAWN Administration Dextrose 25 ml 07/27/24 04:41 Dextrose 50%-Water Inj 50 Ml Syringe IV 08/26/24 04:40 Q15MIN PRN BG 50-70 responsive npo pt Dextrose 50 ml 07/27/24 04:41 Dextrose 50%-Water Inj 50 Ml Syringe IV 08/26/24 04:40 Q15MIN PRN BG <50 OR BG <70 & pt unresponsive Glucagon 1 mg 07/27/24 04:41 Glucagon Inj 1 Mg Vial IM Q15MIN PRN BG <70, and no IV access Heparin Sodium (Porcine) 5,000 unit 07/27/24 09:00 07/28/24 08:36 Heparin Sod Inj 5000 Unit/Ml Vial SC 08/10/24 08:59 5,000 unit Q12HR SHAWN Administration Ceftriaxone Sodium/Dextrose 50 mls @ 100 mls/hr 07/28/24 21:00 Rocephin/D5w 1gm Iv Premix IV 08/04/24 20:59 DAILY@2100 [facility] Lisinopril 40 mg 07/27/24 09:00 07/28/24 08:40 Lisinopril 20 Mg Tablet PO 08/26/24 08:59 40 mg QDAY SHAWN Administration Ondansetron HCl 4 mg 07/27/24 03:57 Ondansetron Inj 2 Mg/Ml Inj 2 Ml IV 08/26/24 03:56 Q6H PRN NAUSEA OR VOMITING Protocol Oseltamivir Phosphate 75 mg 07/27/24 09:00 07/28/24 08:41 Oseltamivir 75 Mg Capsule PO 08/03/24 04:09 75 mg BID SHAWN Administration Quetiapine Fumarate 25 mg 07/27/24 09:00 07/28/24 08:41 Quetiapine Fumarate 25 Mg Tablet PO 08/26/24 08:59 25 mg BID SHAWN Administration Sodium Chloride 3 ml 07/27/24 01:34 07/27/24 02:22 Sodium Chloride Rt Abby 0.9% 3 Ml Nebu INH 08/26/24 01:33 3 ml PRN PRN Administration SOLN Plan Summary: The patient is a 24-year-old female with a past medical history of type 2 diabetes mellitus, hypertension, hyperlipidemia, schizophrenia, and obesity who is admitted for management of AHRF secondary to influenza. #Acute hypoxic respiratory failure, secondary to #Sepsis, secondary to #Influenza A and B #Superimposed community acquired pneumonia Presents with shortness of breath, fever, chills, and productive cough for 1 day. Influenza A and B positive, COVID-negative. SIRS 2/4: RR 22, WBC 15.9. Source: influenza A/B -> sepsis. 07/28/2024- At bedside today, patient reports mild improvement in her breathing function. She is currently saturating 96% on 5 L of oxygen. Labs reviewed, WBC uptrending to 20.3, possibly as result of IV steroids given on admission. Plan: ? CT Oseltamivir 75 mg p.o. twice daily ? Ceftriaxone and azithromycin for CAP coverage ? Follow-up blood and urine cultures ? O2 supplementation as needed #Schizophrenia Restarted medications according to medication history. Still pending med rec. ? Aripiprazole 10 mg daily ? Quetiapine fumarate 25 mg twice daily ? Benztropine 0.5 mg twice daily #Hypertension ? Lisinopril 40 mg daily ? Carvedilol 25 mg daily #Type 2 diabetes mellitus-ruled out A1c 5.9 ?DC SSI #Hyperlipidemia ? Atorvastatin 20 mg p.o. daily ? Follow-up lipid panel Hospital management: Disposition: 2-3 hospital nights Fluids: not indicated Diet: carb consistent low Lines: peripheral DVT prophylaxis: heparin SC BID CODE STATUS: full code Case was discussed with senior resident Dr Negron and attending physician, Dr Arnold Badillo MD PGY-1 Attending Provider Attestation/Addendum I have discussed and was present for the essential components of the history, physical examination, diagnosis, and treatment plan with the resident. I agree with the patient's care as documented by the resident and amended herein by me. Marcio Barrett DO. Although this document has been carefully reviewed, there may still be some phonetic and other typographical errors. These errors are purely grammatical due to imperfections in the software program and should not be construed in any way to compromise the substance of the patient's medical care during this visit.
--- NOTE | 2024-07-28 16:49 | PC.PT ---
PT eval only, Pt is currently at par with PLOF, IND on all functional mobility including transfers and AMB without use of AD. No further PT needed, RN made aware.
[2024-07-28] MEDS: ATORVASTATIN CALCIUM 20 MG TABLET PO (20:16)
[2024-07-28] MEDS: AZITHROMYCIN 250 MG TABLET 500 MG PO (20:16)
[2024-07-28] MEDS: BENZTROPINE 0.5 MG TABLET PO (20:16)
[2024-07-28] MEDS: cefTRIAXone/D5w 1gm IV premix 50 ML IV (20:43)
[2024-07-29] VITALS (14 sets, daily range): BP systolic 125–166; BP diastolic 58–93; PULSE 73–99; RESP 18–96; TEMP 36.2–37; O2SAT 92–96
[2024-07-29 05:57] LABS: Basophils % (Auto) 0 % (0-2.5); Eosinophils % (Auto) 0 % (0-10); Hematocrit 34.2 % (36.0-46.0); Immature Granulocytes % (Auto) 1 % (0-0); Immature Granulocytes Auto 0.06 Thou/mm3 (0.00-0.00); Lymphocytes # (Auto) 2.5 Thou/mm3 (1.0-4.8); Lymphocytes % (Auto) 27 % (10-50); Mean Corpuscular HGB Conc 29.2 g/dl (31.0-37.0); Mean Corpuscular Hemoglobin 24.2 pg (25.0-35.0); Mean Corpuscular Volume 83 fL (80-100); Monocytes # (Auto) 0.9 Thou/mm3 (0.0-0.8); Monocytes % (Auto) 10 % (0-12); Neutrophils # (Auto) 5.5 Thou/mm3 (1.8-7.7); Neutrophils % (Auto) 61 % (37-80); Nucleated Red Blood Cell # 0.02 Thou/mm3 (0.00-0.00); Nucleated Red Blood Cell % 0 /100 WBC (0); Platelet Count 431 Thou/mm3 (140-440); RDW Standard Deviation 74.2 fL (36.4-46.3); Red Blood Count 4.14 Miln/mm3 (4.00-5.20)
[2024-07-29 06:28] LABS: Anion Gap 3 (7-16); BUN/Creatinine Ratio 30 Ratio (12-20); Blood Urea Nitrogen 15 mg/dL (9-23); Calcium 9.1 mg/dL (8.3-10.6); Carbon Dioxide 33.8 mMol/L (20.0-31.0); Chloride 103 mMol/L (98-107); Creatinine (Component) 0.5 mg/dL (0.6-1.3); Estimated Creatinine Clearance 298.4 mL/min (>60); Glucose 78 mg/dL (74-106); Magnesium 2.1 mg/dL (1.6-2.6); Osmolality,Calculated 279 (275-295); Potassium 4.8 mMol/L (3.4-5.1); Sodium 140 mMol/L (136-145); eGFR > 60 See Note
[2024-07-29] MEDS: carVEDILOL 12.5 MG TABLET 25 MG PO ×2 (07:03→17:00)
--- NOTE | 2024-07-29 08:05 | PC.SS ---
Late note 07/28/24: SS met with pt and provided her with choices of the accepting SNF, [facility], and [facility]. Patient's choice is [facility] due to being closer to home. SNF placement: [facility] [address] [place] [address] Penitentiary Facility 07/28/2024 12:41 (1) [facility] [address] [place] [phone] Penitentiary Facility 07/28/2024 12:41 (1) [facility] [address] [place] [address] Penitentiary Facility 07/28/2024 12:41 (1) [facility] [address] [place] [address] Penitentiary Facility No 07/28/2024 13:43 07/28/2024 12:41 No Female Beds (1) [facility] [address] [place], [place] [phone] Penitentiary Facility No 07/28/2024 12:45 07/28/2024 12:41 Unable To Meet Needs (1) [facility] [address] [place] [address] Penitentiary Facility No 07/28/2024 13:28 07/28/2024 12:41 Other (2) [facility] Facility [address] [place], [place] [phone] Penitentiary Facility 07/28/2024 12:41 (1) [facility] [address] [place] [address] Penitentiary Facility No 07/28/2024 12:45 07/28/2024 12:41 Other (2) [facility] [address], [place] [id number] Penitentiary Facility 07/28/2024 12:41 (1) [facility] [address] [place], [place] [phone] Penitentiary Facility No [facility] [address] [place], [place] [phone] Penitentiary Facility No 07/28/2024 23:34 07/28/2024 12:41 Unable To Meet Needs (1) [facility] [address] [place] [address] Penitentiary Facility No 07/28/2024 12:43 07/28/2024 12:41 Unable To Meet Needs (1) [facility] [address] [place], [place] [phone] Penitentiary Facility 07/28/2024 12:41 (1) [facility] [address] [place] [address] Penitentiary Facility No 07/28/2024 13:12 07/28/2024 12:41 Unable To Meet Needs (1) [facility] [address] [place], [place] [phone] Penitentiary Facility No 07/28/2024 16:08 07/28/2024 12:41 No Bed Available (1) [facility] [address] [place], [place] [phone] Penitentiary Facility Yes 07/28/2024 16:53 07/28/2024 12:41 We can accept this patient. Thank you for your referral (1) [facility] [address] [place], [place] [phone] Penitentiary Facility No 07/28/2024 12:50 07/28/2024 12:41 Unable To Meet Needs (1) [facility] [address] [place] [address] Penitentiary Facility Yes 07/28/2024 12:44 07/28/2024 12:41 We can accept this patient. Thank you for your referral (2) [facility] [address] [place] [address] Penitentiary Facility 07/28/2024 12:41 (1) [facility] [address] [place], [place] [phone] Penitentiary Facility No [facility] [address] [place], [place] [phone] Penitentiary Facility No 07/28/2024 14:07 07/28/2024 12:41 Unable To Meet Needs (2) [facility] ([facility] [address] [place] [address] Penitentiary Facility 07/28/2024 12:41 (1) [facility] [address] [place], [place] [phone] Penitentiary Facility 07/28/2024 12:41 (1) [facility] [address] [place], [place] [phone] Penitentiary Facility No 07/28/2024 13:01 07/28/2024 12:41 Unable To Meet Needs, Care needs exceed current staffing capacity (1) [facility] [address] [place] [address] Penitentiary Facility No 07/28/2024 15:06 07/28/2024 12:41 Unable To Meet Needs (1) [facility] [address] [place] [address] Penitentiary Facility No 07/28/2024 12:50 07/28/2024 12:41 Unable To Meet Needs (1) [facility] [address] [facility] [address] [place] [address] Penitentiary Facility 07/28/2024 12:41 (1) [facility] [address] [place] [address] Penitentiary Facility 07/28/2024 12:41 (1) [facility] Penitentiary Facility [address] [place], [place] [phone] Penitentiary Facility 07/28/2024 12:41 (1) [facility] [address] [place], [place] [phone] Penitentiary Facility No [facility] [address] [place] [address] Penitentiary Facility No 07/28/2024 12:58 07/28/2024 12:41 No Bed Available (1) [facility] [address] [place] [phone] Penitentiary Facility No 07/28/2024 13:15 07/28/2024 12:41 Unable To Meet Needs (1) [facility] [address] [place], [place] [phone] Penitentiary Facility No 07/28/2024 12:58 07/28/2024 12:41 Unable To Meet Needs (1) [facility] [address] [place], [place] [phone] Penitentiary Facility 07/28/2024 12:41 (1) [facility] [address] [place] [address] Penitentiary Facility No 07/28/2024 12:43 07/28/2024 12:41 Unable To Meet Needs (1) [facility] [address] [place] [phone] Penitentiary Facility No 07/28/2024 12:46 07/28/2024 12:41 Other (2) [facility] [address] [place] [address] Penitentiary Facility No 07/28/2024 12:59 07/28/2024 12:41 Care needs exceed current staffing capacity (1) [facility] [address] [place], [place] [phone] Penitentiary Facility No 07/28/2024 13:30 07/28/2024 12:41 Unable To Meet Needs (1) [facility] [address] [place] [phone] Penitentiary Facility 07/28/2024 12:41 (1) [facility] [address] [facility] [place] [phone] Penitentiary Facility No [facility] [address] [place] [phone] Penitentiary Facility No 07/28/2024 14:48 07/28/2024 12:41 Patient does not meet criteria (2) [facility] [address] [place] [address] Penitentiary Facility 07/28/2024 12:41 (1) [facility] [address] [place] [phone] Penitentiary Facility No 07/28/2024 15:04 07/28/2024 12:41 Unable To Meet Needs (1) [facility] [address] [place], [place] [phone] Penitentiary Facility 07/28/2024 12:41 (1) [facility] [address] [place] [address] Penitentiary Facility No 07/28/2024 13:09 07/28/2024 12:41 Care needs exceed current staffing capacity, Patient does not meet criteria (2) [facility] [address] [place], [place] [phone] Penitentiary Facility No 07/28/2024 14:23 07/28/2024 12:41 No Bed Available (1) [facility] [address] [place] [address] Penitentiary Facility No 07/28/2024 13:23 07/28/2024 12:41 Unable To Meet Needs (1) [facility] [address] [place], [place] [phone] Penitentiary Facility Yes 07/28/2024 12:44 07/28/2024 12:41 We can accept this patient. Thank you for your referral (2) [facility] [address], [place] [phone] Penitentiary Facility 07/28/2024 12:41 (1) [facility] [address] [address] Penitentiary Facility [facility] [address] [place] [address] Penitentiary Facility 07/28/2024 12:41 (1) [facility] [address] [place] [address] Penitentiary Facility No 07/28/2024 12:41 07/28/2024 12:41 Unable To Meet Needs (1) [facility] [address] [place], [place] [phone] Penitentiary Facility No 07/28/2024 14:14 07/28/2024 12:41 Unable To Meet Needs (1) [facility] [address] [place], [place] [phone] Penitentiary Facility No 07/28/2024 12:47 07/28/2024 12:41 Unable To Meet Needs (1) [facility] [address] [place] [address] Penitentiary Facility 07/28/2024 12:41 (1) [facility] [address] [place] [address] Penitentiary Facility 07/28/2024 12:41 (1) [facility] [address] [place] [address] Penitentiary Facility No 07/28/2024 13:46 07/28/2024 12:41 Not a covered benefit (1) [facility] [address] [place] [phone] Penitentiary Facility No 07/28/2024 12:54 07/28/2024 12:41 Risk for ferry terminal supervisor care (1) [facility] [address] [place], [place] [phone] Penitentiary Facility No 07/28/2024 13:48 07/28/2024 12:41 Patient does not meet criteria (1) [facility] [address] [place], [place] [phone] Penitentiary Facility No [facility] [address] [place], [place] [phone] Penitentiary Facility No 07/28/2024 13:04 07/28/2024 12:41 Unable To Meet Needs (1) [facility] [address] [place] [address] Penitentiary Facility 07/28/2024 12:41 (1) [facility] [place] [address] [place] [address] Penitentiary Facility 07/28/2024 12:41 (1) [facility] [address] [place] [address] Penitentiary Facility Yes 07/28/2024 12:50 07/28/2024 12:41 We can accept this patient. Thank you for your referral (1) [facility] [address] [place], [place] [phone] Penitentiary Facility No 07/28/2024 14:58 07/28/2024 12:41 No Female Beds (1) [facility] [address] [place] [phone] Penitentiary Facility Considering 07/28/2024 13:57 07/28/2024 12:41 Pending Nurse Evaluation (1) [facility] [address] [place] [phone] Penitentiary Facility No 07/28/2024 12:59 07/28/2024 12:41 Unable To Meet Needs (1) [facility] [address] [place] [phone] Penitentiary Facility No 07/28/2024 12:45 07/28/2024 12:41 Risk for senior living care (1) [facility] [address] [place], [place] [phone] Penitentiary Facility No 07/28/2024 12:43 07/28/2024 12:41 Unable To Meet Needs (1) [facility] [address] [place], [place] [phone] Penitentiary Facility No [address] [address] Penitentiary Facility
[2024-07-29] MEDS: ARIPiprazole 5 MG TABLET 10 MG PO (08:10)
[2024-07-29] MEDS: HEPARIN SOD INJ 5000 UNIT/ML VIAL SC ×2 (08:10→20:35)
[2024-07-29] MEDS: Lisinopril 20 MG TABLET 40 MG PO (08:13)
[2024-07-29] MEDS: OSELTAMIVIR 75 MG CAPSULE PO ×2 (08:14→20:39)
[2024-07-29] MEDS: QUEtiapine FUMARATE 25 MG TABLET PO ×2 (08:15→20:39)
--- NOTE | 2024-07-29 10:24 | CHAP ---
Patient expressed gratitude for visit and prayer. Patient requested a Bible which I brought to her.
--- NOTE | 2024-07-29 10:31 | PC.SS ---
Addendum entered by Vaishali Schmitz 07/29/24 10:38: Yesterday 07-28-24 SS met with pt and dad who are aware SNF is short term at [facility]. Yesterday 07-28-24 SS received call from Rosalie Gray, therapist from [facility] and Nicole from [facility], phone# [phone] and SS informed them pt will d/c to SNF for short term. Rosalie confirmed pt has an appointment at [facility] Aug 10, 2024. They are aware pt will dc over the weekend. Original Note: SS followed up with Lluvia at [facility], phone# [phone] and is aware pt will be ready for d/c Thursday07-30-24. SS called [facility] and spoke to Jerald who states he will close the case and is aware pt is d/c to SNF.
[2024-07-29 13:55] LABS: Cocci Serology, IgG Negative (Negative)
--- NOTE | 2024-07-29 14:05 | ESPR_ITS ---
<Statement entered by Ibrahima Negron DO - 07/29/24 21:48> Senior attestation: Patient was examined and case was reviewed with team including attending physician. Note reviewed, I agree with most of its contents and agree with the patient's care. Will continue tamiflu and rocephin/azithromycin, will de-escalate tomorrow, anticipated discharge on 07/30 pending SNF acceptance. Of note, patient reported auditory hallucinations today but states they have been persistent for few days. Does not endorse any thoughts of self harm, no visual hallucinations reported, will continue patient's home psychiatric medications. Case management team seeking possible psychiatry consultation as part of discharge planning. Ibrahima Negron DO PGY-3 Documentation for date of: 07/29/24 Subjective Subjective Interval history: Patient seen at bedside. No acute overnight events. Patient does not have any complaints today, is relatively improved and saturating 92% on 4 L of oxygen. Cultures returned negative as well as cocci IgM and RSV. Vitals showed elevated blood pressure prior to medication administration, SBP greater than 160. Labs reviewed, WBC significantly dropped back to normal limits now 9.0. CMP showed some alkalosis, possibly compensating for hypoventilation. Will continue antibiotics and Tamiflu. Also walk the patient and get an ambulatory SpO2. Monitoring blood pressure closely. Exam Vital Signs Temp Pulse Resp BP Pulse Ox O2 Del Method O2 Flow Rate 97.1 F 89 22 H 155/58 H 94 L Nasal Cannula 4 07/29/24 12:00 07/29/24 12:22 07/29/24 12:22 07/29/24 12:00 07/29/24 12:22 07/29/24 12:00 07/29/24 12:00 FiO2 18 07/27/24 23:02 Narrative Exam GENERAL: AAOX3, morbidly obese NEURO: DOMESTIC HELPER grossly intact, moves extremities x4 HEENT: Dry mucosa. Eyes open, symmetrical, & clear, nasal cannula in-situ CARDIO: No chest pain on palpation. Heart RRR, no obvious murmurs PULM: No noted coughing/dyspnea. Crackles bilaterally, although soft due to body habitus, saturating 92% on 4L GI: Abdomen soft, nondistended, no pain on palpation. BSx4 URO/CASINO CAGE SUPERVISOR:: No further abnormalities noted. SKIN/MSK/EXT: No wounds/rashes/edema/amputations, no pain on palpation. Pedal pulses present B/L Objective Labs 07/30/24 05:05 07/30/24 05:05 Labs: Laboratory Results - last 24 hr 07/28/24 07/28/24 07/29/24 11:15 12:35 05:10 WBC 9.0 D RBC 4.14 Hgb 10.0 L Hct 34.2 L MCV 83 MCH 24.2 L MCHC 29.2 L RDW Std Deviation 74.2 H Plt Count 431 D Neut % (Auto) 61 Lymph % (Auto) 27 [place] % (Auto) 10 Eos % (Auto) 0 Baso % (Auto) 0 Neut # (Auto) 5.5 Lymph # (Auto) 2.5 [place] # (Auto) 0.9 H Eos # (Auto) 0.0 Baso # (Auto) 0.0 Immature Gran # (Auto) 0.06 H Absolute Nucleated RBC 0.02 H Immature Gran % 1 H Nucleated RBC % 0 Sodium 140 Potassium 4.8 Chloride 103 Carbon Dioxide 33.8 H Anion Gap 3 L BUN 15 Creatinine 0.5 L Estim Creat Clear Calc 298.4 eGFR > 60 BUN/Creatinine Ratio 30 H Glucose 78 Calculated Osmolality 279 Calcium 9.1 Magnesium 2.1 Coccidioides IgG Ab Negative RSV Rapid Negative Quality Measures Quality Measures none Assessment & Plan Assessment Current Active Medications: Generic Name Dose Route Start Last Admin Trade Name Freq PRN Reason Stop Dose Admin Acetaminophen 650 mg 07/27/24 03:57 Acetaminophen 325 Mg Tablet PO 08/26/24 03:56 Q6H PRN PAIN OR FEVER > 101 Aripiprazole 10 mg 07/27/24 09:00 07/29/24 08:10 Aripiprazole 5 Mg Tablet PO 08/26/24 08:59 10 mg QDAY SHAWN Administration Atorvastatin Calcium 20 mg 07/27/24 21:00 07/28/24 20:16 Atorvastatin Calcium 20 Mg Tablet PO 08/26/24 20:59 20 mg HS SHAWN Administration Azithromycin 500 mg 07/28/24 21:00 07/28/24 20:16 Azithromycin 250 Mg Tablet PO 08/04/24 20:59 500 mg HS SHAWN Administration Benzonatate 200 mg 07/27/24 13:36 Benzonatate 100 Mg Capsule PO 08/26/24 13:35 Q8HR PRN COUGH Protocol Benztropine Mesylate 0.5 mg 07/27/24 21:00 07/28/24 20:16 Benztropine 0.5 Mg Tablet PO 08/26/24 20:59 0.5 mg HS SHAWN Administration Carvedilol 25 mg 07/27/24 08:00 07/29/24 07:03 Carvedilol 12.5 Mg Tablet PO 08/26/24 07:59 25 mg BIDWM SHAWN Administration Dextrose 25 ml 07/27/24 04:41 Dextrose 50%-Water Inj 50 Ml Syringe IV 08/26/24 04:40 Q15MIN PRN BG 50-70 responsive npo pt Dextrose 50 ml 07/27/24 04:41 Dextrose 50%-Water Inj 50 Ml Syringe IV 08/26/24 04:40 Q15MIN PRN BG <50 OR BG <70 & pt unresponsive Glucagon 1 mg 07/27/24 04:41 Glucagon Inj 1 Mg Vial IM Q15MIN PRN BG <70, and no IV access Heparin Sodium (Porcine) 5,000 unit 07/27/24 09:00 07/29/24 08:10 Heparin Sod Inj 5000 Unit/Ml Vial SC 08/10/24 08:59 5,000 unit Q12HR SHAWN Administration Ceftriaxone Sodium/Dextrose 50 mls @ 100 mls/hr 07/28/24 21:00 07/28/24 20:43 Rocephin/D5w 1gm Iv Premix IV 08/04/24 20:59 100 mls/hr DAILY@2100 SHAWN Administration Lisinopril 40 mg 07/27/24 09:00 07/29/24 08:13 Lisinopril 20 Mg Tablet PO 08/26/24 08:59 40 mg QDAY SHAWN Administration Ondansetron HCl 4 mg 07/27/24 03:57 Ondansetron Inj 2 Mg/Ml Inj 2 Ml IV 08/26/24 03:56 Q6H PRN NAUSEA OR VOMITING Protocol Oseltamivir Phosphate 75 mg 07/27/24 09:00 07/29/24 08:14 Oseltamivir 75 Mg Capsule PO 08/03/24 04:09 75 mg BID SHAWN Administration Quetiapine Fumarate 25 mg 07/27/24 09:00 07/29/24 08:15 Quetiapine Fumarate 25 Mg Tablet PO 08/26/24 08:59 25 mg BID SHAWN Administration Sodium Chloride 3 ml 07/27/24 01:34 07/27/24 02:22 Sodium Chloride Rt Abby 0.9% 3 Ml Nebu INH 08/26/24 01:33 3 ml PRN PRN Administration SOLN Plan Summary: The patient is a 24-year-old female with a past medical history of type 2 diabetes mellitus, hypertension, hyperlipidemia, schizophrenia, and obesity who is admitted for management of AHRF secondary to influenza. #Acute hypoxic respiratory failure, secondary to #Sepsis, secondary to #Influenza A and B #Superimposed community acquired pneumonia Presents with shortness of breath, fever, chills, and productive cough for 1 day. Influenza A and B positive, COVID-negative. SIRS 2/: RR 22, WBC 15.9. Source: influenza A/B -> sepsis. 07/29/2024- Patient does not have any complaints today, is relatively improved and saturating 92% on 4 L of oxygen. Cultures returned negative as well as cocci IgM and RSV. Labs reviewed, WBC significantly dropped back to normal limits now 9.0. CMP showed some alkalosis, possibly compensating for hypoventilation. Will continue antibiotics and Tamiflu. Also walk the patient and get an ambulatory SpO2. Plan: ? CT Oseltamivir 75 mg p.o. twice daily ? Ceftriaxone and azithromycin for CAP coverage ? O2 supplementation as needed #Hx of Schizophrenia Restarted medications according to medication history. Still pending med rec. ? Aripiprazole 10 mg daily ? Quetiapine fumarate 25 mg twice daily ? Benztropine 0.5 mg twice daily #Hypertension ? Lisinopril 40 mg daily ? Carvedilol 25 mg daily #Type 2 diabetes mellitus-ruled out A1c 5.9 ?DC SSI #Hyperlipidemia ? Atorvastatin 20 mg p.o. daily Hospital management: Disposition: 2-3 hospital nights Fluids: not indicated Diet: carb consistent low Lines: peripheral DVT prophylaxis: heparin SC BID CODE STATUS: full code Case was discussed with senior resident Dr Negron and attending physician, Dr Arnold Badillo MD PGY-1 Attending Provider Attestation/Addendum I have discussed and was present for the essential components of the history, physical examination, diagnosis, and treatment plan with the resident. I agree with the patient's care as documented by the resident and amended herein by me. Marcio Barrett DO. Although this document has been carefully reviewed, there may still be some phonetic and other typographical errors. These errors are purely grammatical due to imperfections in the software program and should not be construed in any way to compromise the substance of the patient's medical care during this visit.
[2024-07-29] MEDS: ATORVASTATIN CALCIUM 20 MG TABLET PO (20:39)
[2024-07-29] MEDS: AZITHROMYCIN 250 MG TABLET 500 MG PO (20:39)
[2024-07-29] MEDS: cefTRIAXone/D5w 1gm IV premix 50 ML IV (20:39)
[2024-07-29] MEDS: BENZTROPINE 0.5 MG TABLET PO (20:39)
--- NOTE | 2024-07-29 21:03 | PC.NURSE ---
Called patient's father, Emilio, to ask if he can bring patient's home meds to complete med reconciliation but no answer.
[2024-07-30] VITALS (10 sets, daily range): BP systolic 118–170; BP diastolic 79–87; PULSE 67–103; RESP 17–21; TEMP 36.1–36.3; O2SAT 81–98; BMI 88.3
[2024-07-30] MEDS: ACETAMINOPHEN 325 MG TABLET 650 MG PO (04:19)
[2024-07-30 06:05] LABS: Basophils # (Auto) 0.1 Thou/mm3 (0.0-0.2); Basophils % (Auto) 0 % (0-2.5); Eosinophils # (Auto) 0.2 Thou/mm3 (0.0-0.5); Eosinophils % (Auto) 1 % (0-10); Hemoglobin 10.7 g/dL (12.0-16.0); Immature Granulocytes % (Auto) 1 % (0-0); Immature Granulocytes Auto 0.07 Thou/mm3 (0.00-0.00); Lymphocytes # (Auto) 2.9 Thou/mm3 (1.0-4.8); Lymphocytes % (Auto) 20 % (10-50); Mean Corpuscular HGB Conc 28.9 g/dl (31.0-37.0); Mean Corpuscular Hemoglobin 24.2 pg (25.0-35.0); Mean Corpuscular Volume 84 fL (80-100); Monocytes % (Auto) 7 % (0-12); Neutrophils # (Auto) 10.5 Thou/mm3 (1.8-7.7); Neutrophils % (Auto) 71 % (37-80); Nucleated Red Blood Cell # 0.03 Thou/mm3 (0.00-0.00); Nucleated Red Blood Cell % 0 /100 WBC (0); Platelet Count 338 Thou/mm3 (140-440); RDW Standard Deviation 74.1 fL (36.4-46.3); Red Blood Count 4.42 Miln/mm3 (4.00-5.20); White Blood Count 14.7 Thou/mm3 (3.6-11.0)
[2024-07-30 06:49] LABS: Alanine Aminotransferase 20 U/L (10-49); Albumin, Serum 3.8 gm/dL (3.5-5.0); Albumin/Globulin Ratio 1.5 (1.2-2.2); Alkaline Phosphatase 91 U/L (46-116); Anion Gap 2 (7-16); Aspartate Amino Transferase 11 U/L (0-34); BUN/Creatinine Ratio 30 Ratio (12-20); Blood Urea Nitrogen 18 mg/dL (9-23); Calcium 9.3 mg/dL (8.3-10.6); Calcium (Corrected) 9.5 mg/dL (8.5-10.1); Carbon Dioxide 37.9 mMol/L (20.0-31.0); Chloride 99 mMol/L (98-107); Creatinine (Component) 0.6 mg/dL (0.6-1.3); Estimated Creatinine Clearance 248.7 mL/min (>60); Globulin 2.5 gm/dL (2.3-3.5); Glucose 126 mg/dL (74-106); Magnesium 2.1 mg/dL (1.6-2.6); Osmolality,Calculated 281 (275-295); Potassium 4.4 mMol/L (3.4-5.1); Sodium 139 mMol/L (136-145); Total Protein 6.3 gm/dL (5.7-8.2); eGFR > 60 See Note
[2024-07-30] MEDS: carVEDILOL 12.5 MG TABLET 25 MG PO (08:08)
[2024-07-30] MEDS: Lisinopril 20 MG TABLET 40 MG PO (08:08)
[2024-07-30] MEDS: ARIPiprazole 5 MG TABLET 10 MG PO (08:08)
[2024-07-30] MEDS: HEPARIN SOD INJ 5000 UNIT/ML VIAL SC (08:09)
[2024-07-30] MEDS: QUEtiapine FUMARATE 25 MG TABLET PO (08:09)
[2024-07-30] MEDS: OSELTAMIVIR 75 MG CAPSULE PO (08:09)
--- NOTE | 2024-07-30 10:11 | PC.SS ---
Addendum entered by Brii John 07/30/24 11:50: Senior Energy Analyst (THAD) Brii contacted [facility] for insurance authorization for transportation (reference number: [id number]). THAD scheduled transportation for 1500. THAD notified patient, bedside RN-Tamie and attempted to notify father, Emilio via telephone call with no success. Original Note: Senior Energy Analyst (THAD) Bri[facility]. Lluvia requested an ETA when physician submits discharge summary; information be to fax to [phone].
[2024-07-30 11:09] LABS: Bilirubin,Total 0.4 mg/dL (0.3-1.2)
--- NOTE | 2024-07-30 12:46 | ESDS_ITS ---
<Statement entered by Ibrahima Negron DO - 07/30/24 15:10> Senior attestation: Patient was examined and case was reviewed with team including attending physician. Note reviewed, I agree with most of its contents and agree with the patient's care. Additional comments as follows: Patient advised to continue follow up with PCP and/or psychiatry for further management, patient may require adjustment of psychiatric medications in outpatient setting. Ibrahima Negron DO PGY-3 Planned Discharge Date 07/30/24 DS: Providers Provider Date of admission: 07/27/24 03:57 Primary care physician: Dimitry Oglesby MD Admitting Provider: Jose Alfredo Willoughby MD Attending Provider on Admission: Arya Barrett DO Consults: 07/28/24 09:09 Referral Physical Therapy Routine Comment: Physician Instructions: 07/29/24 03:52 Referral Haley Routine Comment: Attending Provider on DC: Bryan Hayes MD Discharging Provider: Bryan Hayes MD Anticipated date of discharge: 07/30/24 DS: Diagnosis Problem List Completed Was Problem List Reviewed/Reconciled?: Yes Hospital Course Hospital Course Hospital course: Hospital course: Ms. Al 24-year-old female with past medical history of hypertension, hyperlipidemia, schizophrenia, morbid obesity, obesity hypoventilation syndrome and prediabetes who was admitted to [facility] for acute hypoxic respiratory failure secondary to influenza and superimposed community-acquired pneumonia. Patient tested positive for influenza A and B in the emergency department, chest x-ray was positive for extensive bilateral pneumonia, patient had increased oxygen requirement from her baseline of room air and was started on supplemental oxygen. Patient was started on oseltamivir and IV antibiotics for management of influenza and pneumonia. Patient condition improved with the progression of hospital course and patient's oxygen requirement have decreased. Further plan is to discharge patient to senior care facility due to underlying skilled needs and follow- up with primary care physician in 1 week. Patient to continue Tamiflu for 1 day and azithromycin for 3 days. Patient is stable for discharge. Patient responded well to hospital treatment. Discharge diagnosis: #Acute hypoxic respiratory failure, secondary to #Sepsis, secondary to #Influenza A and B #Superimposed bilateral community acquired pneumonia #Obesity hypoventilation syndrome #Schizophrenia #Hypertension #Prediabetes #Type 2 diabetes mellitus-ruled out #Hyperlipidemia Case discussed with Attending Dr. Hayes and Dr. Negron PGY3. Joseph Main PGY1 Status at Discharge Functional status at discharge: independent ambulation Overall status at discharge: patient is progressing back to baseline Time Spent with Patient Time attestation: Total time spent providing and/or coordinating discharge services: Greater than 30 minutes Time spent: Greater than 30 minutes Exam Vital Signs Temp Pulse Resp BP Pulse Ox O2 Del Method O2 Flow Rate 97.1 F 103 H 18 170/81 H 81 L Nasal Cannula 2.5 07/30/24 11:54 07/30/24 11:54 07/30/24 11:54 07/30/24 11:54 07/30/24 11:54 07/30/24 08:00 07/30/24 08:00 FiO2 18 07/27/24 23:02 Narrative Exam GENERAL: AAOX3, morbidly obese NEURO: SPINNING ROOM WORKER grossly intact, moves extremities x4 HEENT: Dry mucosa. Eyes open, symmetrical, & clear, nasal cannula in-situ CARDIO: No chest pain on palpation. Heart RRR, no obvious murmurs PULM: No noted coughing/dyspnea. Crackles bilaterally, although soft due to body habitus, saturating 92% on 2.5L GI: Abdomen soft, nondistended, no pain on palpation. BSx4 URO/GUN STOCK CHECKER:: No further abnormalities noted. SKIN/MSK/EXT: No wounds/rashes/edema/amputations, no pain on palpation. Pedal pulses present B/L Discharge Plan Plan Patient Disposition: Xfer Skilled Nsg Fac (SNF) Prescriptions/Referrals Prescriptions/Med Rec: New quetiapine 25 mg Tablet 25 mg PO BID 30 Days Qty: 60 0RF benztropine 0.5 mg Tablet 0.5 mg PO HS 30 Days Qty: 30 0RF oseltamivir 75 mg Capsule 75 mg PO BID 2 Days Qty: 3 0RF aripiprazole 5 mg Tablet 10 mg PO QDAY 30 Days Qty: 60 0RF azithromycin 250 mg Tablet 500 mg PO HS 3 Days Qty: 6 0RF Continued (DME) FreeStyle Rosales 2 [place] Misc See Rx Instructions .Route Qty: 1 0RF Rx Instructions: As directed (DME) FreeStyle Rosales 2 Sensor Kit See Rx Instructions .Route Qty: 1 0RF Rx Instructions: As directed metformin 1,000 mg tablet 1,000 mg PO BID Qty: 60 0RF acetaminophen 500 mg capsule 1,000 mg PO Q6H PRN (Reason: fever or pain) Qty: 30 0RF lisinopril 20 mg Tablet 40 mg PO QDAY 30 Days Qty: 60 1RF carvedilol [Coreg] 3.125 mg Tablet 3.125 mg PO BID Rx Instructions: must administer with a meal/food Zilactin-B 10 % Gel See Rx Instructions .ROUTE .COMPLEX PRN (Reason: MOUTH/DENTAL PAIN) Qty: 7 0RF Rx Instructions: apply twice a day as needed atorvastatin 20 mg Tablet 40 mg PO HS Qty: 30 0RF polyethylene glycol 3350 [HealthyLax] 17 gram Powder In Packet 17 g PO QDAY PRN (Reason: constipation) Qty: 30 0RF Discontinued metformin 1,000 mg tablet 500 mg PO BID Patient Comments: TOME LUIS FERNANDO TABLETA DOS VECES AL D A CON ALIMENTO cefuroxime axetil 500 mg tablet 500 mg PO BID Qty: 14 0RF polyethylene glycol 3350 [Miralax] 17 gram/dose powder 4 g PO QDAY Qty: 119 0RF oseltamivir [Tamiflu] 75 mg capsule 75 mg PO BID 5 Days Qty: 10 0RF haloperidol 2 mg tablet 2 mg PO BID Patient Comments: TOME LUIS FERNANDO TABLETA POR V A ORAL DOS VECES AL D A Trintellix 10 mg Tablet 10 mg PO HS Rexulti 2 mg tablet 3 mg PO HS ondansetron 4 mg tablet,disintegrating 4 mg PO Q8H PRN (Reason: nausea and vomiting) Qty: 10 0RF Referrals: Dimitry Oglesby MD [Primary Care Provider] - Patient/Caregiver Discharge Instructions Discharge Activity: activity as tolerated Other Discharge Activity Instructions:: Continue Tamiflu for 1 more day Continue azithromycin for 3 days Follow-up with primary care physician in 1 week Return to emergency department if symptoms worsen Education Materials: The Flu (Influenza) Print Language: Beninese Stand Alone Forms: Zandra Award Info., Patient Portal Info Letter Discharge Order Discharge Orders: Discharge (Routine); Ordered 07/30/24 Ordered By: Bryan (HOSPITALIST) Freddy Quality Discharge Quality Measures VTE prophylaxis Attestestation Attestation Face to face evaluation was performed by me. I have personally seen and examined the patient. I discussed the assessment and plan with the entire medicine team, including Dr. Main I reviewed available medical records, imaging studies, laboratory results. I agree with the above subjective data, objective findings, assessment and plan except as noted #Acute hypoxic respiratory failure, secondary to #Sepsis, secondary to Influenzas viral illness and possible bacterial PNA, POA, without septic schok #Influenza A and B #Superimposed bilateral community acquired pneumonia #Obesity hypoventilation syndrome Patient improved, on oseltamivir course, also antibiotics for possible bacterial superimposed pneumonia, plan to discharge to rehabilitation finish oseltamivir and azithromycin courses. Follow-up with PCP as soon as possible
--- NOTE | 2024-08-01 14:23 | PC.SS ---
SS attempted to contact Mei from [facility] to update her about pt being d/c but was unsuccessful. SS left her voicemail with SS contact information. SS also attempted to contact Rosalie Gray, therapist from [facility] but was unsuccessful. SS left voicemail with SS contact information.
== END 2024-07-30 15:04 | disposition skilled nursing facility (03) | DRG 871 ==
LOC: SERX 03:25 → SERHOLD 04:52 → S3NX 16:02
PROVIDERS: Admitting Provider Internal Medicine; Emergency Provider Emergency Medicine; PCP Family Medicine; Visit Provider Student in an Organized Health Care Education/Training Program
DX: A41.89 Other specified sepsis (principal); J10.00 Influenza due to other identified influenza virus with unspecified type of pneumonia; J96.01 Acute respiratory failure with hypoxia; Z68.45 Body mass index [BMI] 70 or greater, adult; E66.2 Morbid (severe) obesity with alveolar hypoventilation; E87.3 Alkalosis; F20.9 Schizophrenia, unspecified; I10 Essential (primary) hypertension; E78.5 Hyperlipidemia, unspecified; J10.1 Influenza due to other identified influenza virus with other respiratory manifestations; Z86.16 Personal history of COVID-19
CPT/HCPCS: 36415; 71045; 80048; 80053; 80061; 80076; 81001; 83036; 83605; 83735; 83880; 84100; 84145; 84443; 84484; 84703; 85025; 85610; 85730; 86331; 86635; 87040; 87086; 87400; 87634; 87811; 93005; 94644; 96361; 96365; 96367; 96372; 97161; 99283; 99285; J0456; J0696; J1643; J2919; J7030; J7050; A9270; J1644